=== PATIENT | female | born 1935 | race Caucasian/White ===

== ENCOUNTER 2020-05-16 10:24 | Inpatient (IN) | payer MEDICARE, SELFPAY ==
[2020-05-16] VITALS (27 sets, daily range): BP systolic 117–140; BP diastolic 45–58; PULSE 58–76; RESP 11–20; TEMP 36.1–36.8; O2SAT 72–100; BMI 29.9
--- NOTE | ~2020-05-16 | CT_ITS ---
EXAMINATION: CT brain wo con DATE: 05/20/2020 10:28 INDICATION: Confusion. TECHNIQUE: Computed tomography (CT) of the head was performed without intravenous contrast. The mA wa s adjusted according to patient size. Iterative reconstruction technique was employed. The dose-lengt h product was 605.33 mGy-cm. COMPARISON: Head CT 01/10/2009 FINDINGS: There are scattered areas of low attenuation in the cerebral white matter. There is an old infarct in left frontal lobe. There is no intracranial hemorrhage, acute infarction, or abnormal intr acranial mass lesion. The ventricles are normal in size. The paranasal sinuses are clear. There are c hanges of right mastoidectomy. There are likely changes of ocular lens replacement surgeries. IMPRESSION: 1. 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 2. Moderate nonspecific cerebral white matter disease, which likely represents chronic small vessel i schemic disease. Reviewed, dictated and finalized at location A. L SPLITTER IMPRESSION: 1. 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 2. Moderate nonspecific cerebral white matter disease, which likely represents chronic small vessel ischemic disease.
--- NOTE | ~2020-05-16 | US_ITS ---
EXAMINATION: US venous doppler [facility] DATE: 05/16/2020 13:01 INDICATION: Shortness of breath. Elevated d-dimer. TECHNIQUE: Grayscale ultrasound images without and with compression and Doppler ultrasound images of the bilateral lower extremity veins were obtained. COMPARISON: None. FINDINGS: Noncompressible deep venous thrombosis in the right soleus vein and paired peroneal veins. The visual ized portions of right common femoral vein, profunda (deep) femoral vein, femoral vein, popliteal vei n, posterior tibial veins, gastrocnemius vein and greater saphenous vein outflow are patent. Noncompressible deep venous thrombosis in the left gastrocnemius vein and paired peroneal veins. The visualized portions of left common femoral vein, profunda femoral vein, femoral vein, popliteal vein, posterior tibial veins and greater saphenous vein outflow are patent. IMPRESSION: 1. [id number] deep venous thrombosis at both the left and right lower limbs. Reviewed, dictated and finalized at location A. URE FABRICATOR REPAIRER IMPRESSION: 1. Bwgij-[id number]-[id number] deep venous thrombosis at both the left and right lower limb s.
--- NOTE | ~2020-05-16 | CT_ITS ---
EXAMINATION: CTA chest PE protocol DATE: 05/16/2020 13:17 INDICATION: Shortness of breath. TECHNIQUE: Computed tomography angiography (CTA) of the chest was performed with 100 mL Omnipaque-350 intravenous contrast timed to evaluate the pulmonary arteries. Coronal maximum intensity projection 3D-reconstructions were created by the technologist. Automated exposure control and iterative reconst ruction technique were employed. The dose-length product was 315.65 mGy-cm. COMPARISON: Chest CT 06/13/2018 FINDINGS: There is smooth septal thickening in the lungs, consistent with pulmonary edema. There is m ild atelectasis in the lower lobes. There is peripheral scarring at left lung, worst at the left lung apex. There are calcified pleural plaques in left hemithorax. There are trace pleural effusions. Car diomegaly is noted. There are coronary artery calcifications. The central pulmonary arteries are enla rged, consistent with pulmonary arterial hypertension. There is no pulmonary embolus. There is a smal l sliding hiatal hernia. There is a left fifth rib defect from prior thoracotomy. There is mild thora cic spondylosis. There is a hemangioma in T6 vertebral body. IMPRESSION: 1. No pulmonary embolus. Sensitivity is mildly decreased by motion artifact 2. Mild pulmonary edema with trace pleural effusions. 3. Scarring in left lung, worst at the lung apex. 4. Cardiomegaly. Reviewed, dictated and finalized at location B. MIGRATION CONSULTANT
--- NOTE | ~2020-05-16 | XR_ITS ---
EXAMINATION: XR chest 1V portable DATE: 05/16/2020 11:28 INDICATION: Shortness of breath. TECHNIQUE: A single frontal view of the chest was obtained. COMPARISON: Chest 2 views 11/23/2018, chest CT 06/13/2018 FINDINGS: There is chronic volume loss of left hemithorax with chronic scarring at left lung apex. Th ere are calcified pleural plaques on the left. There are scattered areas of linear scarring in left l jann. No pleural effusion or pneumothorax. Cardiomegaly is noted. There is a left-sided rib defect fro m prior thoracotomy. IMPRESSION: 1. Scarring in left lung. 2. Cardiomegaly. Reviewed, dictated and finalized at location B. OLE LEVELER
--- NOTE | 2020-05-16 10:35 | ECG_ITS ---
Measurements Intervals [place] Rate: 60 P: 96 AK: 210 QRS: 85 QRSD: 93 T: 70 QT: 429 QTc: 430 Interpretive Statements SINUS RHYTHM WITH FIRST DEGREE AV BLOCK ATRIAL PREMATURE COMPLEX DELAYED PRECORDIAL R/S TRANSITION BASELINE ARTIFACT- I, III, AVR, AVL, AVF ABNORMAL ECG Electronically Signed On 05-16-2020 11:18:16 STREETCAR STARTER by Yovanny Elliott D.O.
[2020-05-16 10:50] LABS: Basophils Absolute Auto 0.1 K/mm3 (0.0-0.1); Basophils Percent Auto 0.8 % (0.2-1.2); Eosinophils Absolute Auto 0.4 K/mm3 (0-0.3); Eosinophils Percent Auto 4.9 % (0-4.4); Hematocrit 32.8 % (37.0-47.0); Hemoglobin 10.5 g/dL (12.0-15.0); Immature Granulocyte Absolute 0.02 K/mm3 (0.00-0.031); Immature Granulocyte Percent A 0.3 % (0-0.5); Lymphocytes Absolute Auto 1.54 K/mm3 (0.9-3.2); Lymphocytes Percent Auto 21.5 % (18.3-44.2); Mean Corpuscular Hemoglobin 30.1 pg (26-34); Mean Platelet Volume 10.2 fl (7.4-10.4); Monocytes Absolute Auto 0.8 K/mm3 (0.1-0.6); Monocytes Percent Auto 11.3 % (2.6-8.5); Neutrophils Absolute Auto 4.4 K/mm3 (1.3-6.7); Neutrophils Percent Auto 61.2 % (45.5-73.1); Platelet Count Result 186 k/mm3 (150-375); Red Blood Count 3.49 M/mm3 (4.2-5.4); Red Cell Distribution Width 12.4 % (11.5-14.5); White Blood Count 7.2 K/mm3 (4.5-10.0)
[2020-05-16 11:04] LABS: Anion Gap 5 mmol/L (8-16); Blood Urea Nitrogen 25 mg/dL (7-17); Calcium 8.8 mg/dL (8.4-10.2); Carbon Dioxide 32 mmol/L (22-30); Chloride 101 mmol/L (98-107); Estimated CRCL calculation 29 ml/min; Estimated Glomerular Filt Rate 39; Glucose 121 mg/dL (65-105); Potassium 3.9 mmol/L (3.4-5.0); Sodium 138 mmol/L (137-145)
[2020-05-16 11:12] LABS: NT Pro B Type Natriuretic Pept 1230 PG/ML (5-100)
--- NOTE | 2020-05-16 11:47 | ED.SOB ---
HPI - SOB/Dyspnea General Chief Complaint: Shortness of Breath/Dyspnea <Carolina Linda PA-C - Last Filed: 05/16/20 14:17> Stated Complaint: short of breath x2 days <JAYJAY Beasley Last Filed: 05/16/20 14:17> Time Seen by Provider: 05/16/20 11:22 <Carolina Linda PA-C - Last Filed: 05/16/20 14:17> Source: patient <JAYJAY Beasley Last Filed: 05/16/20 14:17> Mode of arrival: ambulatory <JAYJAY Beasley Last Filed: 05/16/20 14:17> Limitations: no limitations <JAYJAY Beasley Last Filed: 05/16/20 14:17> History of Present Illness HPI Narrative: This is a 84 year old female that presents to the ER for shortness of breath that started this morning. Reports it has improved some since onset. Started while at rest. Also reports lower extremity edema. Denies fever, cough or chest pain. <JAYJAY Beasley Last Filed: 05/16/20 14:17> Related Data Home Medications: Home Medications Medication Instructions Recorded Confirmed donepezil mg 05/16/20 isosorbide mononitrate mg PO 05/16/20 memantine mg BID 05/16/20 valsartan 320 mg PO BID 05/16/20 <JAYJAY Beasley Last Filed: 05/16/20 14:17> Allergies/Adverse Reactions: Allergies Allergy/AdvReac Type Severity Reaction Status Date / Time No Known Allergies Allergy Verified 05/16/20 11:19 <JAYJAY Beasley Last Filed: 05/16/20 14:17> Review of Systems Review of Systems: Narrative: CONSTITUTIONAL: Denies fever ENT: Denies congestion CARDIOVASCULAR: Reports edema. Denies chest pain RESPIRATORY: Reports dyspnea. Denies cough <JAYJAY Beasley Last Filed: 05/16/20 14:17> All systems reviewed & are unremarkable except as noted in HPI and below <Carolina Linda PA-C - Last Filed: 05/16/20 14:17> [facility] Past Medical History Medical History: Medical History (Updated 05/16/20 @ 14:13 by Carolina Linda PA-C) History of coronary artery disease History of dementia History of hypertension History of hypothyroidism <Carolina Linda PA-C - Last Filed: 05/16/20 14:17> Social History Social History: Social History Smoking status: Never smoker Alcohol intake: never Gender identity (if verbalized by the patient): Female <Carolina Linda PA-C - Last Filed: 05/16/20 14:17> Exam Narrative: Exam Narrative: GENERAL: Elderly, well-nourished, and in no acute distress. HEAD: Normocephalic, atraumatic. EYES: EOMI. ENT: Nares clear, no rhinorrhea or epistaxis. Mucous membranes moist. Oropharynx without tonsillar hypertrophy exudate or other lesions. Bilateral TMs pearly novak non-bulging NECK: Supple. No adenopathy or masses. No carotid bruits or JVD CHEST: Clear to auscultation. No respiratory distress. No wheezes rales or rhonchi HEART: Regular rate and rhythm. No murmur heard. Normal peripheral pulses. EXTREMITIES: Normal range of motion. 1+ pitting edema to the bilateral lower extremities SKIN: Warm, dry, no rash. NEURO: No focal deficits. Alert and oriented x3. PSYCH: Normal mood and affect <Carolina Linda PA-C - Last Filed: 05/16/20 14:17> Course FINANCIAL MANAGEMENT/PA Physician Supervision For this encounter, I have reviewed the PA documentation, treatment plan and medical decision making: And I have had [id number] time with the patient. On exam heart regular rate and rhythm crackles bilateral lung bases. Discussed with patient need for admission all questions answered patient in agreement at this time <Nikunj Melgar DO - Last Filed: 05/16/20 14:27> Consultations Consultation #1: Spoke with hospitalist about patient and work-up who accepts admission <Carolina Linda PA-C - Last Filed: 05/16/20 14:17> Date: 05/16/20 <Carolina Linda PA-C - Last Filed: 05/16/20 14:17> Time: 14:14 <Carolina Linda PA-C - Last Filed: 05/16/20 14:17> Vital Signs Vital signs: Vital Signs Temperature 97.4 F L 05/16/20 10:36
[2020-05-16 12:02] LABS: Prothrombin Time 13.3 Seconds (11.1-14.7)
[2020-05-16 12:03] LABS: Partial Thromboplastin Time 28.8 SECONDS (22.3-36.8)
[2020-05-16 12:06] LABS: D Dimer 2.12 ug/mL (<0.48)
[2020-05-16 12:22] LABS: Troponin I < 0.012 ng/mL (0.000-0.034)
--- NOTE | 2020-05-16 12:34 | PC.NURSE ---
Pt at ultrasound at this time
--- NOTE | 2020-05-16 13:08 | PC.NURSE ---
Pt to CT scan.
[2020-05-16] MEDS: ENOXAPARIN 80 MG/0.8 ML SYRINGE 75 MG SUB-Q (14:09)
[2020-05-16] MEDS: FUROSEMIDE INJ 40 MG/4 ML VIAL IV PUSH ×2 (14:09→22:19)
--- NOTE | 2020-05-16 14:22 | PC.NURSE ---
pt oxygen saturation 72% on room after walking back from the bathroom. Dr Melgar notified.
[2020-05-16 15:12] LABS: Troponin I < 0.012 ng/mL (0.000-0.034)
--- NOTE | 2020-05-16 15:47 | PC.NURSE ---
Updated pt's son JEAN Snider pt admitted to room 340
--- NOTE | 2020-05-16 16:07 | ADMGEN ---
This patient, Judy Pastor, was admitted to Medical Room 340-01. Patient/family oriented to hospital policies and general routines including ID bracelet, bed and alarms, visiting hours, pain management, procedures, bathroom and other care routines, personal items, smoking policy, room service/diet, and visiting hours. Information on how to activate the Rapid Response Team has been discussed. Patient/Family are encouraged to report perceived risks to care and to ask questions if they do not understand what they are told or what they should do.
--- NOTE | 2020-05-16 22:00 | PM.IMHP ---
H&P: HPI History of Present Illness Date/Time: 05/16/20 22:00 Chief complaint: Shortness of breath. Narrative: Judy Pastor is an 84-year-old female with hypertension, hypothyroidism, congestive heart failure, and dementia who presented to the emergency department earlier today from home for evaluation of shortness of breath. She has a fair historian due to her forgetfulness but from what I can gather she has been feeling short of breath for the last couple of days, worse with exertion and lying supine. She also reports lower extremity edema but it sounds as though this has been an intermittent issue for many years. She reports rhinorrhea as well and apparently reported sinus congestion and diarrhea to the triage nurse however she adamantly denies that to me. A D-dimer was drawn on arrival to the emergency department and was elevated. Subsequent chest CTA was negative for pulmonary embolism but did demonstrate mild pulmonary edema with trace effusions as well as cardiomegaly. Due to mild hypoxia, she is being admitted for further treatment and evaluation of presumed congestive heart failure. She has not noticed any significant change in weight. She denies chest pain, palpitations, and feelings of racing heart. No nausea, vomiting, or sweats. She has not had fever or chills. She denies cough. No sick contacts or known exposure to those positive for COVID-19. Review of Systems Review of Systems: Narrative: Twelve systems were reviewed with pertinent positives and negatives as per HPI. She believes her weight has remained stable. No recent travel. No dysuria. Except as documented, all other systems were reviewed and are negative. [facility], [facility] Past Medical History Medical History (Updated 05/17/20 @ 00:31 by Meg Payne PA-C) Carotid artery disease Cerebrovascular accident Congestive heart failure Dementia Depression with anxiety History of tuberculosis Hypertension Hypothyroidism Osteoarthritis Surgical History Surgical History (Updated 05/17/20 @ 00:28 by Meg Payne PA-C) History of bilateral cataract extraction History of carotid endarterectomy History of right knee joint replacement History of thoracotomy At age 16 with what sounds like wedge resection related to tuberculosis. Family History Family History Father Tuberculosis Social History Social History (Updated 05/17/20 @ 00:29 by Meg Payne PA-C) Social History: The patient lives in [place] with her . She is a lifelong nonsmoker. No alcohol or illicit substance the use. Her son Tylor is power of environmental attorney. She is a full code. Spiritual care concerns: No Meds Home Medications and Allergies Home Medications Medication Instructions Recorded Confirmed Type levothyroxine 150 mcg tablet 150 mcg PO DAILY #30 tablet 12/13/19 05/16/20 Rx carvedilol 25 mg tablet 12.5 mg PO Q12H #90 tablet 05/14/20 05/16/20 Rx amlodipine 10 mg PO DAILY 05/16/20 05/16/20 History donepezil 5 mg PO QPM 05/16/20 05/16/20 History isosorbide mononitrate 30 mg PO DAILY 05/16/20 05/16/20 History lorazepam 0.5 mg PO HS 05/16/20 05/16/20 History memantine 10 mg PO BID 05/16/20 05/16/20 History sertraline 50 mg PO HS 05/16/20 05/16/20 History valsartan 320 mg PO DAILY 05/16/20 05/16/20 History Allergies Allergy/AdvReac Type Severity Reaction Status Date / Time No Known Allergies Allergy Verified 05/16/20 18:21 Vital Signs Vital Signs - 24 hr 05/16/20 10:36 05/16/20 11:16 05/16/20 11:35 Temperature 97.4 F L Pulse Rate 64 63 60 Respiratory Rate 17 17 Blood Pressure 117/45 L Pulse Oximetry 94 85 L 91 05/16/20 11:45 05/16/20 11:46 05/16/20 11:48 Temperature Pulse Rate 60 58 L Respiratory Rate 17 15 Blood Pressure 126/56 L Pulse Oximetry 85 L 89 L 97 05/16/20 13:21 05/16/20 13:22 05/16/20 13:30 Temperature Pulse Rate 71 68 65 Respir
[2020-05-17] VITALS (12 sets, daily range): BP systolic 97–157; BP diastolic 50–59; PULSE 65–160; RESP 18–24; TEMP 36–36.4; O2SAT 86–97
[2020-05-17] MEDS: carvediloL 12.5 MG TABLET PO ×3 (01:48→20:40)
[2020-05-17] MEDS: LEVOTHYROXINE SODIUM 150 MCG TABLET PO (06:29)
[2020-05-17] MEDS: ENOXAPARIN 80 MG/0.8 ML SYRINGE SUB-Q ×2 (06:30→17:10)
[2020-05-17 06:54] LABS: Hematocrit 34.3 % (37.0-47.0); Hemoglobin 11.2 g/dL (12.0-15.0); Mean Corpuscular HGB Conc 32.7 g/dl (32-36); Mean Corpuscular Hemoglobin 29.3 pg (26-34); Mean Corpuscular Volume 89.8 fl (80-100); Mean Platelet Volume 10.6 fl (7.4-10.4); Platelet Count Result 209 k/mm3 (150-375); Red Blood Count 3.82 M/mm3 (4.2-5.4); Red Cell Distribution Width 12.2 % (11.5-14.5); White Blood Count 6.5 K/mm3 (4.5-10.0)
[2020-05-17 07:08] LABS: Alanine Aminotransferase 19 U/L (4-35); Albumin Level 3.6 g/dL (3.5-5.1); Alkaline Phosphatase 87 U/L (38-126); Anion Gap 4 mmol/L (8-16); Aspartate Amino Transferase 32 U/L (14-36); Bilirubin,Total 0.5 mg/dL (0.2-1.3); Blood Urea Nitrogen 20 mg/dL (7-17); Calcium 8.9 mg/dL (8.4-10.2); Carbon Dioxide 37 mmol/L (22-30); Chloride 97 mmol/L (98-107); Estimated CRCL calculation 38 ml/min; Estimated Glomerular Filt Rate 53; Glucose 95 mg/dL (65-105); Magnesium 1.8 mg/dL (1.6-2.3); Potassium 3.2 mmol/L (3.4-5.0); Sodium 138 mmol/L (137-145)
[2020-05-17 08:45] LABS: Free T4 Free Thyroxine Reflex 1.56 ng/dL (0.78-2.19)
[2020-05-17] MEDS: ISOSORBIDE MONONITRATE 30 MG TAB.ER.24H PO (09:15)
[2020-05-17] MEDS: amLODIPine BESYLATE 5 MG TABLET 10 MG PO (09:15)
[2020-05-17] MEDS: MEMANTINE 10 MG TABLET PO ×2 (09:15→17:10)
[2020-05-17] MEDS: VALSARTAN 160 MG TABLET 320 MG PO (09:15)
[2020-05-17 09:33] LABS: Total Triiodothyronine (T3) 1.25 NG/ML (0.97-1.69)
--- NOTE | 2020-05-17 13:56 | PM.CNCAR ---
Assessment and Plan Additional Plan this is an 84-year-old lady who presents to the hospital reporting symptoms of dyspnea and was admitted with the idea that she has congestive heart failure. As I mentioned above I have been following this lady in the office for about 15 years and I do not have any personal knowledge of her being in a state of decompensated heart failure in the past. For some reason this is stated in her chart as a previous diagnosis. She does have as I stated above a history of documented coronary vasospastic infarction which was a small event in the posterior basal segment 14 years ago. Since then her office follow-up has been quite stable. She has very strange mental status today which I am not used to seeing when she comes to the office as stated above reporting to already have been . An echocardiogram was done to reassess her cardiac status which I suppose is reasonable. I do not see any physical exam evidence that this lady is in a state of decompensated heart failure in my opinion. Gustavo Funes MD [facility] History of Present Illness History of Present Illness Consult date/time: 05/17/20 13:56 Reason For Visit: Shortness of breath. Narrative: This is an 84-year-old woman who I am asked to see at the request of the hospitalist the stated reason for the consult is because of congestive heart failure. The patient apparently came to the hospital yesterday reporting dyspnea and a history of congestive heart failure was stated in the chart and for this reason I was asked to see her in consultation. This is a lady that I had no and follow in the office for about 15 years. She does not have any previous history of congestive heart failure as far as I know does not have a cardiac reason to have CHF. I have been following her case since 2005 when she admitted with some chest pain and had a rise in her cardiac biomarkers. She was brought to the cardiac catheterization lab for angiography and found to have no angiographic coronary abnormalities but she did have a posterior basal wall motion abnormality with a normal overall ejection fraction leading to the impression that she had a spasm induced infarction. She was placed on some medical therapy for this including amlodipine and Isosorbide,since then has not had any cardiovascular problems and I have been seeing her in the office for a long time. 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 I do not have any immediate idea of where the diagnosis of heart failure history comes from in her chart. In any event in this setting of seeing her in consultation. My encounter with her today was extremely unusual. She did remember who I was when I came into the room but she indicated that she had already and was buried. She states that she was experiencing some shortness of breath and states that she still is short of breath and as she states that she is waving her arms around in the air. Patient's chest x-ray demonstrates some loss of volume at the left lung apex. I do not personally see any obvious evidence of CHF on her chest x-ray. In any event in this setting I am seeing her in consultation. Review of Systems Review of Systems: Narrative: Given her very strangemental status I would not consider review of systems reliable ROS unobtainable: Yes unobtainable due to mental status PMFSH Past Medical History Medical History (Updated 05/17/20 @ 00:31 by Meg Payne PA-C) Carotid artery disease Cerebrovascular accident Congestive heart failure Dementia Depression with anxiety History of tuberculosis Hypertension Hypothyroidism Osteoarthritis Surgical History Surgical History (Updated 05/17/20 @ 00:28 by Meg Payne PA-C) History of bilateral cataract extraction History of carotid endarterectomy History of right knee joint replacement History of tho
--- NOTE | 2020-05-17 14:04 | PM.IMPN ---
Progress Note: A&P Assessment and Plan (1) Acute respiratory failure with hypoxia: Code(s): J96.01 - Acute respiratory failure with hypoxia Status: Acute (2) DVT of lower extremity, bilateral: Code(s): I82.403 - Acute embolism and thrombosis of unspecified deep veins of lower extremity, bilateral Status: Acute Assessment and Plan: Will continu anti coagulation. (3) Hypertension: Code(s): I10 - Essential (primary) hypertension Status: Acute Assessment and Plan: Stable on meds (4) Hypothyroidism: Code(s): E03.9 - Hypothyroidism, unspecified Status: Acute Assessment and Plan: Stable on meds (5) Dementia: Code(s): F03.90 - Unspecified dementia without behavioral disturbance Status: Acute Assessment and Plan: Stable on meds (6) Congestive heart failure: Code(s): I50.9 - Heart failure, unspecified Status: Acute Assessment and Plan: Continue di uresis (7) Hypokalemia: Code(s): E87.6 - Hypokalemia Status: Acute Assessment and Plan: Replace and monitor. Additional Plan The patient has been admitted to the hospitalist service overnight as she does have on oxygen requirement, presumably secondary to mild congestive heart failure noted on imaging. Venous Dopplers did show bilateral [id number] DVTs however chest CTA was negative for pulmonary embolism. She will be cautiously diuresed with close monitoring of volume status and renal function. Echocardiogram has been ordered for a.m.. Her blood pressures reviewed and they are stable; will need to watch closely while diuresing. will switch to po anti coagulation in am Subjective Date/time seen: 05/17/20 14:04 Interval history: Patient was seen during the morning rounds today. Mild sob, no chest pain, mood stable. Review of Systems Review of Systems: All systems reviewed & are unremarkable except as noted in HPI and below (the history and physical.) Exam Narrative: Exam Narrative: General: Well-developed elderly female appearing a bit younger than her stated age sitting up in bed watching television in no distress. Weight: 79.2 kg. BMI: 30.0. HEENT: PERRL, EOMI. Sclerae anicteric. Oral mucosa moist. Oropharynx clear. Neck: Supple. No significant JVD. Respiratory : Air entry is slightly decreased Cardiovascular: Regular rate and rhythm with S1-S2. Gastrointestinal: Abdomen is soft, nontender, and nondistended with positive bowel sounds. Skin: Warm and dry. No rash or lesions on limited exam. Extremities: No cyanosis or clubbing. Trace bilateral lower extremity edema. Mild tenderness to palpation about both calves. Negative Ravindra sign bilaterally. Radial and pedal pulses intact. Neurological: Alert. Cranial nerves 2-12 are grossly intact. No gross focal deficits to casual conversation. Psychiatric: Pleasant and cooperative. Appropriate mood. Occasionally forgetful. Objective Data Vital Signs Vital Signs: Vital Signs - 24 hr 05/16/20 14:18 05/16/20 14:30 05/16/20 14:31 Temperature Pulse Rate Respiratory Rate Blood Pressure 126/49 L Pulse Oximetry 72 L 100 100 05/16/20 14:45 05/16/20 14:58 05/16/20 15:00 Temperature 36.1 C L Pulse Rate 68 65 Respiratory Rate 16 15 Blood Pressure 126/49 L Pulse Oximetry 99 99 98 05/16/20 15:01 05/16/20 15:42 05/16/20 16:13 Temperature 36.8 C Pulse Rate 64 72 69 Respiratory Rate 13 20 16 Blood Pressure 125/53 L 120/58 L Pulse Oximetry 98 99 05/16/20 16:30 05/16/20 18:32 05/16/20 20:00 Temperature Pulse Rate 76 75 Respiratory Rate Blood Pressure Pulse Oximetry 96 05/16/20 20:44 05/16/20 22:30 05/17/20 00:00 Temperature 36.7 C Pulse Rate 72 70 Respiratory Rate 16 Blood Pressure 140/53 L Pulse Oximetry 95 95 05/17/20 01:48 05/17/20 04:00 05/17/20 04:46 Temperature 36.0 C L Pulse Rate 72 70 65 Respiratory
--- NOTE | 2020-05-17 14:08 | PC.NURSE ---
Patient continues to become more confused and refuses treatment. Patient removed IV from her arm, and pulled off telemetry. Patient is stating that she wants to go home. She keeps refusing treatment saying I'm and resisting care. called and I have spoken with him twice today. He has no memory of our conversations as well.
--- NOTE | 2020-05-17 14:41 | PC.NURSE ---
Call to laundry housekeeping aide to see if we could get a sitter for the patient. No sitter available. supervisor finishing department approved a family member coming in to stay in the room with the patient. Patient is continuing to resist care and throw herself onto the floor. For the patient's safety someone needs to be in the room with her while she is confused.
--- NOTE | 2020-05-17 15:47 | PC.NURSE ---
is in room with patient at this time. Patient seems to be more calm with in the room. Patient still refuses to wear her oxygen despite education given on importance and possible help with confusion if oxygen is worn. Considering moving the patient to a room near the nurses station for her safety as the isn't able to stay long with her.
[2020-05-17] MEDS: DONEPEZIL HCL 5 MG TABLET PO (17:10)
--- NOTE | 2020-05-17 17:17 | PC.NURSE ---
Patient continues to be resistive to care and refuses to listen despite education given on safety and importance of medications. Patient is becoming more confused and less aware of her surroundings and continues to refuse any care given by me or the PROGRAMMER DEVELOPER.
[2020-05-17] MEDS: LORazepam (*CRX) 0.5 MG TABLET PO (20:40)
[2020-05-17] MEDS: SERTRALINE HCL 50 MG TABLET PO (20:40)
[2020-05-18] VITALS (7 sets, daily range): BP systolic 113–147; BP diastolic 50–67; PULSE 64–72; RESP 14–18; TEMP 36.1–37; O2SAT 92–97
[2020-05-18] MEDS: LEVOTHYROXINE SODIUM 150 MCG TABLET PO (06:00)
[2020-05-18] MEDS: ENOXAPARIN 80 MG/0.8 ML SYRINGE SUB-Q (06:00)
[2020-05-18 07:07] LABS: Anion Gap 7 mmol/L (8-16); Blood Urea Nitrogen 16 mg/dL (7-17); Carbon Dioxide 36 mmol/L (22-30); Chloride 97 mmol/L (98-107); Estimated CRCL calculation 42 ml/min; Estimated Glomerular Filt Rate 60; Glucose 93 mg/dL (65-105); Potassium 3.7 mmol/L (3.4-5.0); Sodium 140 mmol/L (137-145)
[2020-05-18] MEDS: carvediloL 12.5 MG TABLET PO ×2 (08:17→20:35)
[2020-05-18] MEDS: amLODIPine BESYLATE 5 MG TABLET 10 MG PO (08:17)
[2020-05-18] MEDS: VALSARTAN 160 MG TABLET 320 MG PO (08:17)
[2020-05-18] MEDS: MEMANTINE 10 MG TABLET PO ×2 (08:18→17:02)
[2020-05-18] MEDS: ISOSORBIDE MONONITRATE 30 MG TAB.ER.24H PO (08:18)
[2020-05-18] MEDS: POTASSIUM CHLORIDE 20 MEQ TABLET.ER 40 MEQ PO (08:18)
--- NOTE | 2020-05-18 11:06 | PM.IMPN ---
Progress Note: A&P Assessment and Plan (1) Acute respiratory failure with hypoxia: Code(s): J96.01 - Acute respiratory failure with hypoxia Status: Acute (2) DVT of lower extremity, bilateral: Code(s): I82.403 - Acute embolism and thrombosis of unspecified deep veins of lower extremity, bilateral Status: Acute Assessment and Plan: Will continu anti coagulation. (3) Hypertension: Code(s): I10 - Essential (primary) hypertension Status: Acute Assessment and Plan: Stable on meds (4) Hypothyroidism: Code(s): E03.9 - Hypothyroidism, unspecified Status: Acute Assessment and Plan: Stable on meds (5) Dementia: Code(s): F03.90 - Unspecified dementia without behavioral disturbance Status: Acute Assessment and Plan: Stable on meds (6) Congestive heart failure: Code(s): I50.9 - Heart failure, unspecified Status: Acute Assessment and Plan: Continue di uresis (7) Hypokalemia: Code(s): E87.6 - Hypokalemia Status: Acute Assessment and Plan: Replace and monitor. Additional Plan The patient has been admitted to the hospitalist service overnight as she does have on oxygen requirement, presumably secondary to mild congestive heart failure noted on imaging. Venous Dopplers did show bilateral [id number] DVTs however chest CTA was negative for pulmonary embolism. She will be cautiously diuresed with close monitoring of volume status and renal function. Echocardiogram has been ordered for a.m.. Her blood pressures reviewed and they are stable; will need to watch closely while diuresing. will switch to po anti coagulation. Dc in am Subjective Date/time seen: 05/18/20 11:06 Interval history: Patient was seen during the morning rounds today. Decreased sob, no chest pain, mood stable. Review of Systems Review of Systems: All systems reviewed & are unremarkable except as noted in HPI and below (the history and physical.) Exam Narrative: Exam Narrative: General: Well-developed elderly female appearing a bit younger than her stated age sitting up in bed watching television in no distress. Weight: 79.2 kg. BMI: 30.0. HEENT: PERRL, EOMI. Sclerae anicteric. Oral mucosa moist. Oropharynx clear. Neck: Supple. No significant JVD. Respiratory : Air entry is slightly decreased Cardiovascular: Regular rate and rhythm with S1-S2. Gastrointestinal: Abdomen is soft, nontender, and nondistended with positive bowel sounds. Skin: Warm and dry. No rash or lesions on limited exam. Extremities: No cyanosis or clubbing. Trace bilateral lower extremity edema. Mild tenderness to palpation about both calves. Negative Ravindra sign bilaterally. Radial and pedal pulses intact. Neurological: Alert. Cranial nerves 2-12 are grossly intact. No gross focal deficits to casual conversation. Psychiatric: Pleasant and cooperative. Appropriate mood. Occasionally forgetful. Objective Data Vital Signs Vital Signs: Vital Signs - 24 hr 05/17/20 12:00 05/17/20 14:00 05/17/20 20:40 Temperature 36.4 C L Pulse Rate 70 160 H 66 Respiratory Rate 24 H Blood Pressure 97/59 L Pulse Oximetry 86 L 05/17/20 20:45 05/17/20 22:00 05/18/20 06:00 Temperature 36.2 C L 36.1 C L Pulse Rate 77 69 Respiratory Rate 18 18 Blood Pressure 157/50 H 147/67 H Pulse Oximetry 97 97 97 05/18/20 08:17 05/18/20 08:20 Temperature Pulse Rate 72 Respiratory Rate Blood Pressure Pulse Oximetry 92 Intake/Output Intake/Output: Intake & Output 05/15/20 05/16/20 05/17/20 05/18/20 23:59 23:59 23:59 23:59 Intake Total 1440 880 Output Total 375 300 Balance -375 1440 580 Meds/Results Medications: Active Medications Generic Name Dose Route Start Last Admin Trade Name Freq PRN Reason Stop Dose Admin Amlodipine Besylate 10 mg 05/17/20 09:00 05/18/20 08:17 Amlodipine Besylate 5 Mg Tablet PO 10 m
[2020-05-18] MEDS: DONEPEZIL HCL 5 MG TABLET PO (17:02)
[2020-05-18] MEDS: LORazepam (*CRX) 0.5 MG TABLET PO (20:36)
[2020-05-18] MEDS: SERTRALINE HCL 50 MG TABLET PO (20:36)
[2020-05-18] MEDS: APIXABAN 5 MG TABLET 10 MG PO (20:36)
[2020-05-19] MEDS: LEVOTHYROXINE SODIUM 150 MCG TABLET PO (06:28)
--- NOTE | 2020-05-19 09:48 | PM.IMPN ---
Progress Note: A&P Assessment and Plan (1) Acute respiratory failure with hypoxia: Code(s): J96.01 - Acute respiratory failure with hypoxia Status: Resolved Assessment and Plan: Pt breathing is better, mood is variable, pt can have haldol IM for agitation. Pt to rest today with sitter in the room, hopeful Dc tomorrow with anticoagulation (2) DVT of lower extremity, bilateral: Code(s): I82.403 - Acute embolism and thrombosis of unspecified deep veins of lower extremity, bilateral Status: Acute Assessment and Plan: Will continue anti- coagulation. (3) Hypertension: Code(s): I10 - Essential (primary) hypertension Status: Acute Assessment and Plan: Stable on meds (4) Hypothyroidism: Code(s): E03.9 - Hypothyroidism, unspecified Status: Acute Assessment and Plan: Stable on meds (5) Dementia: Code(s): F03.90 - Unspecified dementia without behavioral disturbance Status: Acute Assessment and Plan: Stable on meds (6) Congestive heart failure: Code(s): I50.9 - Heart failure, unspecified Status: Acute Assessment and Plan: Continue diuresis (7) Hypokalemia: Code(s): E87.6 - Hypokalemia Status: Acute Assessment and Plan: Replace and monitor. Subjective Date/time seen: 05/19/20 09:48 Interval history: 84-year-old female with hypertension, hypothyroidism, congestive heart failure, and dementia who presented to the emergency department earlier today from home for evaluation of shortness of breath. Found to have DVT, Pt has been very agitated yesterday and this morning. Pt to try haldol Im today and hopeful DC felix. Pt to rest today. Review of Systems Review of Systems: ROS unobtainable: Yes unobtainable due to mental status Exam Narrative: Exam Narrative: General: Well-developed elderly female HEENT: PERRL, EOMI. Neck: Supple. Respiratory : Lungs are clear Cardiovascular: Regular rate and rhythm with S1-S2. Gastrointestinal: Abdomen is soft, nontender, and nondistended with positive bowel sounds. Skin: Warm and dry. No rash or lesions on limited exam. Extremities: No cyanosis or clubbing. Neurological: Alert. Cranial nerves 2-12 are grossly intact. No gross focal deficits to casual conversation. Psychiatric: Pleasant and cooperative. Bit irritable today. Objective Data Vital Signs Vital Signs: Vital Signs - 24 hr 05/18/20 14:00 05/18/20 20:11 05/18/20 20:30 Temperature 36.8 C 37.0 C Pulse Rate 64 66 Respiratory Rate 16 14 Blood Pressure 113/50 L 127/56 L Pulse Oximetry 97 97 96 05/18/20 20:35 Temperature Pulse Rate 68 Respiratory Rate Blood Pressure Pulse Oximetry Intake/Output Intake/Output: Intake & Output 05/16/20 05/17/20 05/18/20 05/19/20 23:59 23:59 23:59 23:59 Intake Total 1440 1910 Output Total 375 300 400 Balance -375 1440 1610 -400 Meds/Results Medications: Active Medications Generic Name Dose Route Start Last Admin Trade Name Freq PRN Reason Stop Dose Admin Amlodipine Besylate 10 mg 05/17/20 09:00 05/18/20 08:17 Amlodipine Besylate 5 Mg Tablet PO 10 mg DAILY SREE Administration Apixaban 10 mg 05/18/20 21:00 05/18/20 20:36 Apixaban 5 Mg Tablet PO 10 mg Q12HR SREE Administration Carvedilol 12.5 mg 05/17/20 00:40 05/18/20 20:35 Carvedilol 12.5 Mg Tablet PO 12.5 mg Q12HR SREE Administration Donepezil HCl 5 mg 05/17/20 18:00 05/18/20 17:02 Donepezil Hcl 5 Mg Tablet PO 5 mg QPM SREE Administration Haloperidol Lactate 5 mg 05/19/20 10:00 Haloperidol Lactate 5 Mg/Ml Vial IM 05/19/20 10:01 ONCE ONE Isosorbide Mononitrate 30 mg 05/17/20 09:00 05/18/20 08:18 Isosorbide Mononitrate 30 Mg Tab.Er.24h PO 30 mg DAILY SREE Administration Levothyroxine Sodium 150 mcg 05/17/20 06:30 05/19/20 06:28 Levothyroxine Sodium 150 Mcg Tablet PO 150 mcg RICARDO
[2020-05-19 10:15] VITALS: BP 143/77; PULSE 63; RESP 16; TEMP 35.7; O2SAT 95
--- NOTE | 2020-05-19 14:13 | PM.PNCARD ---
Progress Note: A&P Additional Plan 84-year-old lady with: Remote history of myocardial infarction that was documented to be due to vasospasm as she had a posterior event with no coronary lesions being identified. She has not had any cardiac problems since then and I do not detect any obvious cardiovascular issues currently. I will go ahead and sign off her case at this time continue to follow her in the office as scheduled. Gustavo Funes MD [facility] Subjective Date/time seen: 05/19/20 14:13 Interval history: follow-up visit in this 84-year-old lady with a previous history of coronary vasospasm many years ago. Admitted to the hospital complaining of shortness of breath. Clinical impression was concern regarding congestive heart failure and I did not see any evidence of that on my consultation examination. Patient today is more calm and does for the most part answer questions appropriately all although in the middle of the visit she closed her eyes and refused to speak. No cardiovascular complaints Exam Const: General: comfortable and no acute distress HENMT: Mouth: Yes moist mucous membranes Eyes: Sclera: sclerae normal Pupils: Equal, round and reactive pupils present Neck: Neck: supple and no JVD Other: carotid upstrokes normal no bruits audible Resp: Effort & Inspection: normal respiratory effort Auscultation: clear to auscultation bilaterally Cardio: Rate: regular rate Rhythm: regular rhythm Other: soft grade 2/6 systolic crescendo decrescendo murmur at the left sternal border GI: GI Palp: Yes Soft to palpation Auscultation: normal bowel sounds Skin: General skin exam: normal color Neuro: Other: very strange a fact as detailed above. Patient at times is conversant and then will refused to respond to questions or to speak Extrem: General: normal to inspection Objective Data Vital Signs Vital Signs: Vital Signs - 24 hr 05/18/20 20:11 05/18/20 20:30 05/18/20 20:35 Temperature 37.0 C Pulse Rate 66 68 Respiratory Rate 14 Blood Pressure 127/56 L Pulse Oximetry 97 96 05/19/20 10:15 Temperature 35.7 C L Pulse Rate 63 Respiratory Rate 16 Blood Pressure 143/77 H Pulse Oximetry 95 Intake/Output Intake/Output: Intake & Output 12/11/20 12/12/20 12/13/20 12/14/20 23:59 23:59 23:59 23:59 Intake Total 1440 1910 Output Total 375 300 400 Balance -375 1440 1610 -400 Meds/Results Medications: Active Medications Generic Name Dose Route Start Last Admin Trade Name Ramos PRN Reason Stop Dose Admin Amlodipine Besylate 10 mg 05/17/20 09:00 05/18/20 08:17 Amlodipine Besylate 5 Mg Tablet PO 10 mg DAILY SREE Administration Apixaban 10 mg 05/18/20 21:00 05/18/20 20:36 Apixaban 5 Mg Tablet PO 10 mg Q12HR SREE Administration Carvedilol 12.5 mg 05/17/20 00:40 05/18/20 20:35 Carvedilol 12.5 Mg Tablet PO 12.5 mg Q12HR SREE Administration Donepezil HCl 5 mg 05/17/20 18:00 05/18/20 17:02 Donepezil Hcl 5 Mg Tablet PO 5 mg QPM SREE Administration Isosorbide Mononitrate 30 mg 05/17/20 09:00 05/18/20 08:18 Isosorbide Mononitrate 30 Mg Tab.Er.24h PO 30 mg DAILY SREE Administration Levothyroxine Sodium 150 mcg 05/17/20 06:30 05/19/20 06:28 Levothyroxine Sodium 150 Mcg Tablet PO 150 mcg DAILY@0630 SREE Administration Lorazepam 0.5 mg 05/17/20 21:00 05/18/20 20:36 Lorazepam (*Crx) 0.5 Mg Tablet PO 0.5 mg HS SREE Administration Memantine 10 mg 05/17/20 09:00 05/18/20 17:02 Memantine 10 Mg Tablet PO 10 mg BID SREE Administration Potassium Chloride 40 meq 05/18/20 08:00 05/18/20 08:18 Potassium Chloride 20 Meq Tablet.Er PO 40 meq DAILY@0800 SREE Administration Sertraline HCl 50 mg 05/17/20 21:00 05/18/20 20:36 Sertraline Hcl 50 Mg Tablet PO 50 mg HS SREE Administration Valsartan 320 mg 05/17/20 09:00 05/18/20 08:17 Valsartan 160 Mg Tablet PO 06/16/20 09:01 320 mg DAILY SC
[2020-05-19] MEDS: HALOPERIDOL LACTATE 5 MG/ML VIAL IM (15:40)
--- NOTE | 2020-05-19 15:55 | PC.NURSE ---
Pt being physically and verbally aggressive. Medication given with the assistance of staff. Pt spitting on staff members, so security was called. Charge nurse and service unit operator at bedside for assistance. I have spoken with the Armando and POA son Justin regarding patient and current plans for care.
--- NOTE | 2020-05-19 18:19 | PC.NURSE ---
Pt refusing all medications today. MD aware. Family aware.
[2020-05-19 20:25] VITALS: BP 136/68; PULSE 72; RESP 16; TEMP 36.7; O2SAT 97
[2020-05-19] MEDS: APIXABAN 5 MG TABLET 10 MG PO (20:26)
[2020-05-19 20:27] VITALS: PULSE 72
[2020-05-19] MEDS: carvediloL 12.5 MG TABLET PO (20:27)
[2020-05-19] MEDS: SERTRALINE HCL 50 MG TABLET PO (20:27)
[2020-05-19] MEDS: LORazepam (*CRX) 0.5 MG TABLET PO (20:27)
[2020-05-20] MEDS: LEVOTHYROXINE SODIUM 150 MCG TABLET PO (06:08)
[2020-05-20 08:00] VITALS: O2SAT 98
[2020-05-20] MEDS: VALSARTAN 160 MG TABLET 320 MG PO (08:31)
[2020-05-20] MEDS: MEMANTINE 10 MG TABLET PO (08:31)
[2020-05-20] MEDS: APIXABAN 5 MG TABLET 10 MG PO (08:31)
[2020-05-20] MEDS: POTASSIUM CHLORIDE 20 MEQ TABLET.ER 40 MEQ PO (08:31)
[2020-05-20] MEDS: ISOSORBIDE MONONITRATE 30 MG TAB.ER.24H PO (08:31)
[2020-05-20 08:32] VITALS: PULSE 82
[2020-05-20] MEDS: amLODIPine BESYLATE 5 MG TABLET 10 MG PO (08:32)
[2020-05-20] MEDS: carvediloL 12.5 MG TABLET PO (08:32)
[2020-05-20 09:01] LABS: Vitamin B12 > 1000.0 pg/mL (239-931)
--- NOTE | 2020-05-20 12:19 | PM.DS ---
DS: Admitting Diagnosis Admitting Diagnosis Admitting Diagnosis: SOB DS: Discharge Diagnosis Discharge Diagnosis (1) Acute respiratory failure with hypoxia: Code(s): J96.01 - Acute respiratory failure with hypoxia Status: Resolved Assessment and Plan: Pt breathing is better, mood is variable, pt did have haldol IM for agitation and oral ativan yesterday. Pt appears alot better today very calm. (2) DVT of lower extremity, bilateral: Code(s): I82.403 - Acute embolism and thrombosis of unspecified deep veins of lower extremity, bilateral Status: Acute Assessment and Plan: Started on eliquis. Will continue anti- coagulation. (3) Hypertension: Code(s): I10 - Essential (primary) hypertension Status: Acute Assessment and Plan: Stable on meds (4) Hypothyroidism: Code(s): E03.9 - Hypothyroidism, unspecified Status: Acute Assessment and Plan: Stable on meds (5) Dementia: Code(s): F03.90 - Unspecified dementia without behavioral disturbance Status: Acute Assessment and Plan: Stable on meds, i have increased her aricept to 10 mg po qdaily, pt is on namenda and aricept. Pt given 20# of ativan for severe anxiety or agitation to use sparingly. Pt to follow with neurology on discharge. Pt had CT head, B12 and TSH ordered prior to discharge, which were normal. 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 2. Moderate nonspecific cerebral white matter disease, which likely represents chronic small vessel ischemic disease. (6) Congestive heart failure: Code(s): I50.9 - Heart failure, unspecified Status: Acute Assessment and Plan: Continue diuresis (7) Hypokalemia: Code(s): E87.6 - Hypokalemia Status: Resolved Assessment and Plan: Replace and monitor. DS: Summary Hospital Course Hospital Course: 84-year-old female with hypertension, hypothyroidism, congestive heart failure, and dementia who presented to the emergency department earlier today from home for evaluation of shortness of breath. Found to have DVT, Pt has been very agitated yesterday was given haldol and ativan did well, stable for discharge today. Time Spent with Patient Time attestation: Total time spent providing and/or coordinating discharge services:40 minutes on day of discharge Exam Narrative: Exam Narrative: General: Well-developed elderly female HEENT: PERRL, EOMI. Neck: Supple. Respiratory : Lungs are clear Cardiovascular: Regular rate and rhythm with S1-S2. Gastrointestinal: Abdomen is soft, nontender, and nondistended with positive bowel sounds. Skin: Warm and dry. No rash or lesions on limited exam. Extremities: No cyanosis or clubbing. Neurological: Alert. Cranial nerves 2-12 are grossly intact. No gross focal deficits to casual conversation. Psychiatric: Pleasant and cooperative.Very calm and pleasant today. DS: Data Data Completed and Pending Labs on day of discharge: Labs from last 24 hours 05/20/20 05/20/20 05/20/20 07:50 07:50 04:53 Vitamin B12 > 1000.0 H TSH 3.230 SARS-CoV-2 RNA (RT-PCR) Pending Discharge Plan Discharge Attending physician on discharge: Reena Bernstein Consulting providers: Gustavo Funes ; Jorge Luis Hays ; Carolina Linda Discharging Clinician: Reena Bernstein Anticipated Discharge Date/Time: 05/20/20 12:13 Patient Disposition: Home, Self-Care Activity: as tolerated Diet: heart healthy Discharge Instructions: FOLLOW UP WITH NEUROLOGY Patient Instructions: Antibiotic Form, Apixaban (By mouth), Heart Failure (DC), Hypokalemia (DC), Deep Vein Thrombosis (DC) Stand Alone Forms: General Discharge Information Follow-up/Referrals: Adam,JAYJAY Rojas [Primary Care Provider] - Jorge Luis Hays MD [Physician] - (in 1 months time ) Discharge Medications: New lorazepam [Ativan] 0.5 mg tablet 0.5 mg PO HS PRN
[2020-05-20 22:42] LABS: SARS-CoV-2 RNA PCR Negative
== END 2020-05-20 13:30 | disposition home or self-care (01) | DRG 291 ==
LOC: ANHED 14:13 → ANH3MED 14:39
PROVIDERS: Internal Medicine; Physician Assistant; Student in an Organized Health Care Education/Training Program; Admitting Provider Internal Medicine; Emergency Provider Emergency Medicine; PCP Physician Assistant; Visit Provider Family Medicine
DX: I13.0 Hypertensive heart and chronic kidney disease with heart failure and stage 1 through stage 4 chronic kidney disease, or unspecified chronic kidney disease (principal); J96.01 Acute respiratory failure with hypoxia; I82.453 Acute embolism and thrombosis of peroneal vein, bilateral; I82.491 Acute embolism and thrombosis of other specified deep vein of right lower extremity; F03.91 Unspecified dementia, unspecified severity, with behavioral disturbance; I82.462 Acute embolism and thrombosis of left calf muscular vein; Z20.828 Contact with and (suspected) exposure to other viral communicable diseases; I50.9 Heart failure, unspecified; N18.30 Chronic kidney disease, stage 3 unspecified; E03.9 Hypothyroidism, unspecified; I25.10 Atherosclerotic heart disease of native coronary artery without angina pectoris; F41.8 Other specified anxiety disorders; E87.6 Hypokalemia; M19.90 Unspecified osteoarthritis, unspecified site; Z96.651 Presence of right artificial knee joint; Z86.11 Personal history of tuberculosis; Z98.42 Cataract extraction status, left eye; Z98.41 Cataract extraction status, right eye; Z86.718 Personal history of other venous thrombosis and embolism; I25.2 Old myocardial infarction; Z86.73 Personal history of transient ischemic attack (TIA), and cerebral infarction without residual deficits
CPT/HCPCS: 36415; 70450; 71045; 71275; 80048; 80053; 82607; 83735; 83880; 84439; 84443; 84480; 84484; 85025; 85027; 85380; 85610; 85730; 87635; 93005; 93306; 93970; 96372; 96374; 96376; 99291; A9270; C8929; C9803; G0378; J1630; J1650; J1940; Q9967; U0003

== ENCOUNTER 2020-05-21 09:04 | Observation (INO) | payer MEDICARE, SELFPAY ==
[2020-05-21] VITALS (10 sets, daily range): BP systolic 158–184; BP diastolic 62–83; PULSE 68–87; RESP 10–18; TEMP 36.1–36.6; O2SAT 89–98; BMI 27.1
--- NOTE | ~2020-05-21 | XR_ITS ---
XR chest 1V DATE: 05/21/2020 10:07 INDICATION: Unresponsive TECHNIQUE: AP chest COMPARISON: 05/16/2020 portable AP chest 05/16/2020 CT pulmonary scan FINDINGS: Status post left thoracotomy. Prominent left apical capping consistent with left upper lung scarring and volume loss. Cardiomegaly. Aortic calcification. No pulmonary infiltrate or consolidation, pleural effusion or pneumothorax is evident. Pulmonary vasc ular interstitium may indicate mild pulmonary venous hypertension. There is left diaphragmatic pleural calcification suggesting possible prior asbestos exposure. Diffuse osteopenia. IMPRESSION: Status post left thoracotomy and chronic left apical capping/scarring Cardiomegaly. Aortic atherosclerosis. Reviewed, dictated and finalized at location B. ET OPERATOR IMPRESSION: Status post left thoracotomy and chronic left apical capping/scarri ng Cardiomegaly. Aortic atherosclerosis.
--- NOTE | ~2020-05-21 | CT_ITS ---
EXAMINATION: CT brain wo con DATE: 05/21/2020 10:06 INDICATION: Unresponsive. TECHNIQUE: Computed tomography (CT) of the head was performed without intravenous contrast. The mA wa s adjusted according to patient size. Iterative reconstruction technique was employed. The dose-lengt h product was 605.33 mGy-cm. COMPARISON: Head CT 05/20/2020 FINDINGS: There is an old infarct in left frontal lobe. There are scattered areas of low attenuation in the cerebral white matter. There is no intracranial hemorrhage, acute infarction, or abnormal intr acranial mass lesion. The ventricles are normal in size. There is mild mucosal thickening in the para nasal sinuses. There are likely changes of ocular lens replacement surgeries. There are changes of ri ght mastoidectomy. IMPRESSION: 1. 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 2. Stable moderate nonspecific cerebral white matter disease, which likely represents chronic small v essel ischemic disease. Reviewed, dictated and finalized at location A. GER CAR IMPRESSION: 1. 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 2. Stable moderate nonspecific cerebral white matter disease, which likely repr esents chronic small vessel ischemic disease.
--- NOTE | ~2020-05-21 | CT_ITS ---
EXAMINATION: CT facial & cervical spine wo DATE: 05/21/2020 10:06 INDICATION: Head injury. TECHNIQUE: Computed tomography (CT) of the maxillofacial region and cervical spine was performed with out intravenous contrast. Automated exposure control and iterative reconstruction technique were empl oyed. The dose-length product was 368.81 mGy-cm. COMPARISON: None FINDINGS: MAXILLOFACIAL CT: There is leftward deviation of the superior nasal septum and rightward deviation of the inferior nasa l septum. No fracture. There is mild mucosal thickening in the paranasal sinuses. There are likely ch anges of ocular lens replacement surgeries. CERVICAL SPINE CT: There is 2 mm retrolisthesis of C3 on C4. Vertebral body heights are normal. There is interbody fusio n at C3-C4. There is severely decreased disc at from C4-C5 through C6-C7. There is severe facet joint osteoarthritis on the left at C1-C2 with hypertrophy. There is scarring at left lung apex. The follo wing disc levels are specifically discussed: C2-C3: There is mild bilateral uncovertebral joint osteoarthritis. There is mild bilateral facet join t osteoarthritis. There is no neural foraminal stenosis. There is no central canal stenosis. C3-C4: There is mild bilateral uncovertebral joint hypertrophy. There is moderate bilateral facet carito nt hypertrophy. There is mild right neural foraminal stenosis. There is mild central canal stenosis. C4-C5: There is severe bilateral uncovertebral joint osteoarthritis. There is severe right and modera te left facet joint osteoarthritis. There is mild bilateral neural foraminal stenosis. There is moder ate central canal stenosis. C5-C6: There is severe bilateral uncovertebral joint osteoarthritis. There is moderate bilateral face t joint osteoarthritis. There is mild right and moderate left neural foraminal stenosis. There is mod erate central canal stenosis. C6-C7: There is severe bilateral uncovertebral joint osteoarthritis. There is severe right and modera te left facet joint osteoarthritis. There is mild bilateral neural foraminal stenosis. There is mild central canal stenosis. C7-T1: There is no uncovertebral joint osteoarthritis. There is mild bilateral facet joint osteoarthr itis. There is no neural foraminal stenosis. There is no central canal stenosis. IMPRESSION: 1. No fracture. 2. Severe cervical spondylosis. Reviewed, dictated and finalized at location A. GER FREELANCE
--- NOTE | 2020-05-21 09:14 | ECG_ITS ---
Measurements Intervals [place] Rate: 79 P: 53 [place]: 191 QRS: 87 QRSD: 92 T: 78 QT: 376 QTc: 433 Interpretive Statements SINUS RHYTHM BORDERLINE AV CONDUCTION DELAY BASELINE ARTIFACT- I, II, III, AVR, AVL, AVF, V1-V2 BORDERLINE ECG Electronically Signed On 05-21-2020 9:27:06 NEGOTIATIONS DIRECTOR by Yovanny Elliott D.O.
[2020-05-21 09:29] LABS: Basophils Absolute Auto 0.1 K/mm3 (0.0-0.1); Basophils Percent Auto 0.9 % (0.2-1.2); Eosinophils Absolute Auto 0.3 K/mm3 (0-0.3); Hematocrit 41.9 % (37.0-47.0); Hemoglobin 13.5 g/dL (12.0-15.0); Immature Granulocyte Absolute 0.03 K/mm3 (0.00-0.031); Immature Granulocyte Percent A 0.3 % (0-0.5); Lymphocytes Absolute Auto 2.76 K/mm3 (0.9-3.2); Lymphocytes Percent Auto 30.9 % (18.3-44.2); Mean Corpuscular HGB Conc 32.2 g/dl (32-36); Mean Corpuscular Hemoglobin 29.3 pg (26-34); Mean Corpuscular Volume 90.9 fl (80-100); Mean Platelet Volume 10.3 fl (7.4-10.4); Monocytes Absolute Auto 0.8 K/mm3 (0.1-0.6); Monocytes Percent Auto 9.1 % (2.6-8.5); Neutrophils Percent Auto 55.8 % (45.5-73.1); Platelet Count Result 234 k/mm3 (150-375); Red Blood Count 4.61 M/mm3 (4.2-5.4); Red Cell Distribution Width 12.4 % (11.5-14.5); White Blood Count 8.9 K/mm3 (4.5-10.0)
[2020-05-21 09:40] LABS: Alanine Aminotransferase 113 U/L (4-35); Albumin Level 4.1 g/dL (3.5-5.1); Alkaline Phosphatase 106 U/L (38-126); Anion Gap 4 mmol/L (8-16); Aspartate Amino Transferase 137 U/L (14-36); Bilirubin,Total 0.5 mg/dL (0.2-1.3); Blood Urea Nitrogen 18 mg/dL (7-17); Calcium 9.4 mg/dL (8.4-10.2); Carbon Dioxide 33 mmol/L (22-30); Chloride 101 mmol/L (98-107); Estimated Glomerular Filt Rate 60; Glucose 119 mg/dL (65-105); Potassium 4.1 mmol/L (3.4-5.0); Sodium 138 mmol/L (137-145)
--- NOTE | 2020-05-21 09:49 | ED.AMS ---
HPI - Altered Mental Status General Chief Complaint: Altered Mental Status Stated Complaint: UNRESPONSIVE Time Seen by Provider: 05/21/20 09:28 History of Present Illness HPI narrative: Patient arrived to the emergency room from home with unresponsiveness. Patient was laying down on one side of the bed, 1 leg out of the bed and the other one still on top of the bed, and was unresponsive. The was trying to help her to get up but somehow slid slowly out of the bed to the floor and hit her face on the nightstand. Patient was discharged from our hospital yesterday. Patient is DNR. Patient son at the bedside Related Data Home Medications Medication Instructions Recorded Confirmed amlodipine 10 mg PO DAILY 05/16/20 05/16/20 isosorbide mononitrate 30 mg PO DAILY 05/16/20 05/16/20 lorazepam 0.5 mg PO HS 05/16/20 05/16/20 memantine 10 mg PO BID 05/16/20 05/16/20 sertraline 50 mg PO HS 05/16/20 05/16/20 valsartan 320 mg PO DAILY 05/16/20 05/16/20 Allergies Allergy/AdvReac Type Severity Reaction Status Date / Time No Known Allergies Allergy Verified 05/16/20 18:21 Review of Systems Review of Systems: ROS unobtainable: Yes unobtainable due to medical condition and unobtainable due to mental status PMFSH Past Medical History Medical History Carotid artery disease Cerebrovascular accident Congestive heart failure Dementia Depression with anxiety History of tuberculosis Hypertension Hypothyroidism Osteoarthritis Surgical History Surgical History History of bilateral cataract extraction History of carotid endarterectomy History of right knee joint replacement History of thoracotomy At age 16 with what sounds like wedge resection related to tuberculosis. Family History Family History Father Tuberculosis Social History Social History Social History: The patient lives in [place] with her . She is a lifelong nonsmoker. No alcohol or illicit substance the use. Her son Tylor is power of transactional attorney. She is a full code. Spiritual care concerns: No Exam Narrative: Exam Narrative: General appearance: Well-developed, well-nourished Skin: Normal color, slight dried blood at the left side of nose internally and externally, no laceration Head: Normocephalic, nontraumatic Eyes: Clear conjunctiv, pupils round, reactive to light. ENT: Oropharynx normal, ears normal, nose normal Neck: C-collar in place Chest and respiratory: Airway patent, no respiratory distress, no accessory muscle use Heart: Regular rate/rhythm Abdomen: Soft, nontender, no organomegaly, quiet bowel sounds Vascular: Normal peripheral pulses, normal capillary refill. Musculoskeletal: Patient is resisting extremity movement. Neurologic: Responding to painful stimulation by withdrawing. Course Course Emergency Course: Stable Reevaluation(s) Reevaluation #1: According to patient's son, patient is back to her normal mental status as before. He requested half-way placement. He is telling me that some arrangement was done with [facility] Currently patient is awake, talking to her son, oriented only to her name. Date: 05/21/20 Time: 12:09 Vital Signs Vital signs: Vital Signs Temperature 36.1 C L 05/21/20 09:03 Pulse Rate 80 05/21/20 09:03 Respiratory Rate 14 05/21/20 09:03 Blood Pressure 176/74 H 05/21/20 09:03 Pulse Oximetry 89 L 05/21/20 09:03 Temperature 36.1 C L 05/21/20 09:03 Pulse Rate 69 1
[2020-05-21 09:53] LABS: Glucose Point of Care 108 (65-105)
[2020-05-21 09:58] LABS: Add Urine Microscopic? NO; Appearance Urine Clear (Clear); Bacteria Urine Trace /hpf; Bilirubin Urine Negative (Negative); Blood Urine Negative (Negative); Color Urine Straw (Yellow); Glucose Urine UA Negative (Negative); Ketones Urine Negative (Negative); Leukocyte Esterase Ur Negative LEU/UL (Negative); Nitrate Urine Negative (Negative); Protein Urine Negative (Negative); RBC Urine 0-2 /hpf (0-2); Specific Grav Ur 1.009 (1.001-1.035); Urobilinogen Urine Negative mg/dL (<2.0); WBC Urine 0-3 /hpf
[2020-05-21 10:02] LABS: Creatine Kinase 51 U/L (30-135)
[2020-05-21 10:15] LABS: Troponin I < 0.012 ng/mL (0.000-0.034)
[2020-05-21 10:16] LABS: Prothrombin Time 13.5 Seconds (11.1-14.7)
[2020-05-21 11:14] LABS: Amphetamine Screen Urine Negative (Negative); Barbiturate Screen Urine Negative (Negative); Benzodiazepines Screen Urine Negative (Negative); Cannabinoid Screen Urine Negative (Negative); Cocaine Screen Urine Negative (Negative); Methadone Screen Urine Negative (Negative); Opiate Screen Urine Negative (Negative); Phencyclidine Screen Urine Negative (Negative)
--- NOTE | 2020-05-21 13:36 | ADMGEN ---
This patient, Judy Pastor, was admitted to 2 Medical Room 257-01. Patient/family oriented to hospital policies and general routines including ID bracelet, bed and alarms, visiting hours, pain management, procedures, bathroom and other care routines, personal items, smoking policy, room service/diet, and visiting hours. Information on how to activate the Rapid Response Team has been discussed. Patient/Family are encouraged to report perceived risks to care and to ask questions if they do not understand what they are told or what they should do.
--- NOTE | 2020-05-21 14:00 | PM.IMHP ---
H&P: HPI History of Present Illness Date/Time: 05/21/20 14:00 Chief Complaint: Unresponsive episode. Narrative: Juyd Pastor is an 84-year-old female with hypertension, hypothyroidism, and dementia who presented to the emergency department earlier today via EMS from home for evaluation after she was found unresponsive in bed by her . She is known to myself and the hospitalist service with a recent admission on 05/16/2020 at which time she had presented to the emergency department with shortness of breath. She was found to be hypoxic with mild pulmonary edema on imaging, admitted on the supposition that she had congestive heart failure. She was seen in consultation by Dr. Funes, who has followed her in the office for many years after suffering a small vasospastic infarction, and he feels that she does not have congestive heart failure. She was found to have bilateral [id number] DVTs with no evidence pulmonary embolism on chest CTA. Unfortunately she developed agitation during the hospitalization, requiring IM Haldol for acute delirium. She was also started on low-dose Ativan for mild anxiety. The following day she was calm and deemed appropriate for discharge. It is my understanding that her Aricept dose was increased and she was discharged with a prescription for 0.5 mg of Ativan p.r.n. q.h.s. for agitation, to be used sparingly. This morning she was unresponsive in bed, apparently with 1 leg hanging over the side of the bed. try to help her back onto the bed however she slid slowly out of the bed hitting her face on the nightstand, before landing on the floor. At the time my evaluation she has her eyes closed and she does everything in opposition to what I try to do during examination, for instance if I attempt to open her eyes she squeezes them shut. If I gently pushed on her chin to open her mouth, she will clench her teeth. It is thus impossible to get a history from the patient. Review of Systems Review of Systems: Narrative: Unable to obtain given patient's current status as detailed above. 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 Congestive heart failure Grade 2 diastolic dysfunction noted on echocardiogram in June 2018. Ejection fraction at that time was visually estimated at 70%. Dementia Depression with anxiety History of coronary vasospasm History of tuberculosis Hypertension Hypothyroidism Osteoarthritis Surgical History Surgical History History of bilateral cataract extraction History of carotid endarterectomy History of right knee joint replacement History of thoracotomy At age 16 with what sounds like wedge resection related to tuberculosis. Family History Family History Father Tuberculosis Social History Social History Social History: The patient lives in [place] with her . She is a lifelong nonsmoker. No alcohol or illicit substance the use. Her son Tylor is power of divorce attorney. She is a full code. Smoking status: Never smoker Alcohol intake: never Substance use: never Substance use type: does not use Spiritual care concerns: No Meds Home Medications and Allergies Home Medications Medication Instructions Recorded Confirmed Type levothyroxine 150 mcg tablet 150 mcg PO DAILY #30 tablet 12/13/19 05/21/20 Rx carvedilol 25 mg tablet 12.5 mg PO Q12H #90 tablet 05/14/20 05/21/20 Rx amlodipine 10 mg PO DAILY 05/16/20 05/21/20 History isosorbide mononitrate 30 mg PO DAILY 05/16/20 05/21/20 History lorazepam 0.5 mg PO HS 05/16/20 05/21/20 History memantine 10 mg PO BID 05/16/20 12
[2020-05-21] MEDS: SODIUM CHLORIDE 0.9% IV 1,000 ML 75 ML IV CONT (16:59)
--- NOTE | 2020-05-21 17:16 | PC.NURSE ---
Rounded on patient and walked into her room to find her IV pulled out with blood everywhere. I attempted to hold pressure to previous IV site and patient swinging at me. Assisted by dry pan charger, [employer] GRADE TEACHER and admin secretary at bedside to hold patient down in order to hold pressure. Patient eventually allowed staff to clean her up, change bed sheets, etc. New IV access placed and wrapped in kerlix. Attempted to start IVF and patient began immediately pulling at IV tubing. IV access saline locked at this time. Will try to restart fluids later.
[2020-05-22] VITALS (7 sets, daily range): BP systolic 93–173; BP diastolic 50–60; PULSE 68–98; RESP 16–20; TEMP 36.4–36.9; O2SAT 92–96
[2020-05-22 05:10] LABS: Basophils Absolute Auto 0.1 K/mm3 (0.0-0.1); Basophils Percent Auto 1.1 % (0.2-1.2); Eosinophils Absolute Auto 0.3 K/mm3 (0-0.3); Eosinophils Percent Auto 3.7 % (0-4.4); Hematocrit 42.6 % (37.0-47.0); Hemoglobin 13.8 g/dL (12.0-15.0); Immature Granulocyte Absolute 0.02 K/mm3 (0.00-0.031); Immature Granulocyte Percent A 0.3 % (0-0.5); Lymphocytes Absolute Auto 2.23 K/mm3 (0.9-3.2); Lymphocytes Percent Auto 31.9 % (18.3-44.2); Mean Corpuscular HGB Conc 32.4 g/dl (32-36); Mean Corpuscular Hemoglobin 29.6 pg (26-34); Mean Corpuscular Volume 91.2 fl (80-100); Mean Platelet Volume 10.4 fl (7.4-10.4); Monocytes Absolute Auto 0.8 K/mm3 (0.1-0.6); Monocytes Percent Auto 11.2 % (2.6-8.5); Neutrophils Absolute Auto 3.6 K/mm3 (1.3-6.7); Neutrophils Percent Auto 51.8 % (45.5-73.1); Platelet Count Result 264 k/mm3 (150-375); Red Blood Count 4.67 M/mm3 (4.2-5.4); Red Cell Distribution Width 12.2 % (11.5-14.5)
[2020-05-22 05:24] LABS: Alanine Aminotransferase 91 U/L (4-35); Albumin Level 3.8 g/dL (3.5-5.1); Alkaline Phosphatase 104 U/L (38-126); Anion Gap 5 mmol/L (8-16); Aspartate Amino Transferase 88 U/L (14-36); Bilirubin,Total 0.6 mg/dL (0.2-1.3); Blood Urea Nitrogen 13 mg/dL (7-17); CRP 0.8 mg/dL (<1.0); Calcium 9.2 mg/dL (8.4-10.2); Carbon Dioxide 33 mmol/L (22-30); Chloride 101 mmol/L (98-107); Creatine Kinase 37 U/L (30-135); Estimated CRCL calculation 45 ml/min; Estimated Glomerular Filt Rate > 60; Glucose 101 mg/dL (65-105); Magnesium 2.1 mg/dL (1.6-2.3); Potassium 3.9 mmol/L (3.4-5.0); Sodium 139 mmol/L (137-145)
[2020-05-22] MEDS: VALSARTAN 160 MG TABLET 320 MG PO (05:38)
[2020-05-22] MEDS: amLODIPine BESYLATE 5 MG TABLET 10 MG PO (05:38)
[2020-05-22] MEDS: carvediloL 12.5 MG TABLET PO ×2 (05:38→17:29)
[2020-05-22] MEDS: LEVOTHYROXINE SODIUM 150 MCG TABLET PO (05:38)
[2020-05-22] MEDS: MEMANTINE 10 MG TABLET PO ×2 (05:39→17:28)
[2020-05-22] MEDS: ISOSORBIDE MONONITRATE 30 MG TAB.ER.24H PO (05:39)
[2020-05-22] MEDS: SODIUM CHLORIDE 0.9% IV 1,000 ML 75 ML IV CONT (08:51)
--- NOTE | 2020-05-22 14:04 | PM.IMPN ---
Progress Note: A&P Assessment and Plan (1) Unresponsive episode: Code(s): R41.89 - Other symptoms and signs involving cognitive functions and awareness Status: Acute Assessment and Plan: Unclear etiology or if patient was truly unresponsive but suspect underlying dementia playing a role with possible new medications altering her mentation vs possible psych component as patient seemingly was aware of the episode but states I think I just got discharged too early . No evidence of infection. No other complaints at time of event or currently. Benzodiazepine has been held; likely will d/c after discharge Will continue other home medications CC following and arranging for patient to be discharged to [facility] Neurologic checks to be performed q.4 hours. fall precautions. (2) Fall from bed: Code(s): W06.XXXA - Fall from bed, initial encounter Status: Acute Assessment and Plan: PT/OT eval Likely discharge to [facility] after evals (3) Dementia: Code(s): F03.90 - Unspecified dementia without behavioral disturbance Status: Acute Assessment and Plan: A&Ox 4 for me today Continue home meds Advised prompt follow up with Dr. Hays as an outpatient who has seen her in the past (4) Elevated LFTs: Code(s): R79.89 - Other specified abnormal findings of blood chemistry Status: Acute Assessment and Plan: Unclear Etiology, although trending down. No abdominal pain Monitor Hepatic panel in am (5) Hypertension: Code(s): I10 - Essential (primary) hypertension Status: Acute Assessment and Plan: BP running a bit high this morning but dropped to 90s sys after medication Continue home meds Monitor (6) Anticoagulant long-term use: Code(s): Z79.01 - [facility] (current) use of anticoagulants Status: Acute Assessment and Plan: Eliquis had been held due to recent head trauma Will resume tomorrow morning Discussed patient's case with son Justin at request of CC. In addition to her dementia, we also discussed her anticoagulation. Advised that if she continues to fall, then recommend holding anticoagulation and possibly proceed with serial imaging. Also advised discussing with PCP (7) Hypothyroidism: Code(s): E03.9 - Hypothyroidism, unspecified Status: Acute Assessment and Plan: TSH WNL 05/20 Continue home meds Subjective Date/time seen: 05/22/20 14:04 Interval history: Patient is a 84 yo F with history of hypertension, hypothyroidism, and dementia who is seen in follow up for evaluation of episode of being unresponsive in bed at home with subsequent head injury after hitting head on night stand. Patient is A&Ox4 for me this afternoon. She has no complaints for me. Nursing reports that she is having difficulty urinating today and is retaining >300 mL on bladder scan, although patient states she has urge to urinate. Denies f/c/s, headaches, dizziness, lightheadedness, changes in v/h, cp/palpitations, sob/cough, n/v/d/c, abd pain, changes in BMs, dysuria, calf pain/swelling. Of note, when asking her if she knew why she was in the hospital, she states because I have dementia and was acting a bit loopy and recalls the episode at home where she was not responding and continues on to state that she thinks she got discharged too early from her previous stay. Review of Systems Review of Systems: All systems reviewed & are unremarkable except as noted in HPI and below Exam Narrative: Exam Narrative: General: Patient resting supine in bed in no acute distress. A&Ox4. Answers questions appropriately HEENT: Normocephalic, EOMI, oral mucosa moist
--- NOTE | 2020-05-22 15:37 | PC.NURSE ---
pt able to urinate aprox 150ml on BSC, will continue to monitor
[2020-05-22] MEDS: TAMSULOSIN HCL 0.4 MG CAPSULE PO (15:53)
[2020-05-22] MEDS: DONEPEZIL HCL 10 MG TABLET PO (17:28)
[2020-05-22] MEDS: SERTRALINE HCL 25 MG TABLET 50 MG PO (21:00)
[2020-05-22] MEDS: LORazepam (*CRX) 0.5 MG TABLET 0.25 MG PO (23:00)
[2020-05-23 04:00] VITALS: BP 145/59; PULSE 69; RESP 18; TEMP 36.5; O2SAT 94
[2020-05-23 05:52] LABS: Alanine Aminotransferase 60 U/L (4-35); Albumin Level 3.7 g/dL (3.5-5.1); Alkaline Phosphatase 85 U/L (38-126); Anion Gap 5 mmol/L (8-16); Aspartate Amino Transferase 50 U/L (14-36); Bilirubin,Total 0.5 mg/dL (0.2-1.3); Blood Urea Nitrogen 17 mg/dL (7-17); Carbon Dioxide 34 mmol/L (22-30); Chloride 101 mmol/L (98-107); Estimated CRCL calculation 40 ml/min; Estimated Glomerular Filt Rate 60; Glucose 107 mg/dL (65-105); Potassium 3.8 mmol/L (3.4-5.0); Sodium 140 mmol/L (137-145)
[2020-05-23] MEDS: LEVOTHYROXINE SODIUM 150 MCG TABLET PO (05:59)
[2020-05-23 07:00] LABS: Hepatitis B Surface Antigen Negative (Negative)
[2020-05-23 07:06] LABS: HAV RESULT Negative (Negative); Hepatitis B Core IgM Result Negative (Negative)
[2020-05-23 07:17] LABS: Hepatitis C Virus Antibody Negative (Negative)
[2020-05-23 08:47] VITALS: PULSE 74
[2020-05-23] MEDS: carvediloL 12.5 MG TABLET PO (08:47)
[2020-05-23] MEDS: amLODIPine BESYLATE 5 MG TABLET 10 MG PO (08:48)
[2020-05-23] MEDS: VALSARTAN 160 MG TABLET 320 MG PO (08:48)
[2020-05-23] MEDS: APIXABAN 5 MG TABLET 10 MG PO (08:49)
[2020-05-23] MEDS: MEMANTINE 10 MG TABLET PO (08:49)
[2020-05-23] MEDS: ISOSORBIDE MONONITRATE 30 MG TAB.ER.24H PO (08:49)
--- NOTE | 2020-05-23 10:18 | PM.DS ---
DS: Admitting Diagnosis Admitting Diagnosis Admitting Diagnosis: Unresponsive episode DS: Discharge Diagnosis Discharge Diagnosis (1) Unresponsive episode: Code(s): R41.89 - Other symptoms and signs involving cognitive functions and awareness Status: Acute Assessment and Plan: Unclear etiology or if patient was truly unresponsive but suspect underlying dementia playing a role with possible new medications altering her mentation vs possible psych component as patient seemingly was aware of the episode but states I think I just got discharged too early . No evidence of infection. No other complaints at time of event or currently. Benzodiazepine was given at lowered dose last night. Will give short course of lowered dose Will continue other home medications Discharge today to [facility] F/u with PCP (2) Fall from bed: Code(s): W06.XXXA - Fall from bed, initial encounter Status: Acute Assessment and Plan: PT/OT (3) Dementia: Code(s): F03.90 - Unspecified dementia without behavioral disturbance Status: Acute Assessment and Plan: A&Ox 4 for me again today Continue home meds Advised prompt follow up with Dr. Hays as an outpatient who has seen her in the past (4) Elevated LFTs: Code(s): R79.89 - Other specified abnormal findings of blood chemistry Status: Acute Assessment and Plan: Unclear Etiology, although trending down. No abdominal pain. 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 Initially held due to recent fall Discussed patient's case with son Justin at request of CC. In addition to her dementia, we also discussed her anticoagulation. Advised that if she continues to fall, then recommend holding anticoagulation and possibly proceed with serial imaging. Also advised discussing with PCP (7) Hypothyroidism: Code(s): E03.9 - Hypothyroidism, unspecified Status: Acute Assessment and Plan: TSH WNL 05/20 Continue home meds DS: Summary Hospital Course Reason for hospitalization: Unresponsive episode Hospital Course: Date of arrival: 05/21/20 Date of discharge: 05/23/20 Patient is a 84-year-old female with hypertension, hypothyroidism, and dementia who presented to the emergency department on 05/21 via EMS from home for evaluation after she was found unresponsive in bed by her . Patient had recently been admitted and discharged the day prior to arrival. There was reports of patient hitting head on the nightstand after she slid out of her bed. While in the ED, VS were stable, patient afebrile, labs unremarkable. Head CT was grossly unremarkable for acute intracranial process. Patient admitted under setting of unresponsive episode. Patient was admitted to the hospitalist service for further management/treatment. Patient initially was uncooperative during admission visit, however on subsequent visits, patient was A&O, cooperative, but pleasantly confused. Her benzodiazepine was initially held but then resumed at half the dose given increase anxiety. Plan was for her to be discharged to [facility] after evaluation from the facility. Her Eliquis was initially held given her head injury, but was resumed on 05/23. Plan was for discharge to [facility] with follow up with her PCP. She was given instructions for
[2020-05-23 14:00] VITALS: BP 132/59; PULSE 88; RESP 18; TEMP 36.2; O2SAT 99
== END 2020-05-23 15:45 ==
LOC: ANHED 09:28 → ANH2MED 13:00
PROVIDERS: Physician Assistant; Admitting Provider Internal Medicine; Emergency Provider Emergency Medicine; PCP Physician Assistant; Visit Provider Physician Assistant
DX: R41.89 Other symptoms and signs involving cognitive functions and awareness (principal); S09.8XXA Other specified injuries of head, initial encounter; W06.XXXA Fall from bed, initial encounter; F03.90 Unspecified dementia, unspecified severity, without behavioral disturbance, psychotic disturbance, mood disturbance, and anxiety; R79.89 Other specified abnormal findings of blood chemistry; R94.5 Abnormal results of liver function studies; I11.0 Hypertensive heart disease with heart failure; I50.30 Unspecified diastolic (congestive) heart failure; E03.9 Hypothyroidism, unspecified; I25.10 Atherosclerotic heart disease of native coronary artery without angina pectoris; F41.8 Other specified anxiety disorders; M19.90 Unspecified osteoarthritis, unspecified site; Z86.11 Personal history of tuberculosis; Z86.73 Personal history of transient ischemic attack (TIA), and cerebral infarction without residual deficits; Z79.01 Long term (current) use of anticoagulants
CPT/HCPCS: 36415; 51702; 70450; 70486; 71045; 72125; 80048; 80053; 80074; 80076; 80307; 81003; 82550; 83735; 84484; 85025; 85610; 86140; 87040; 93005; 96361; 96365; 97161; 97165; 99285; A9270; G0378; J0131; J7030

== ENCOUNTER 2020-05-31 10:40 | Observation (INO) | payer MEDICARE, BC, SELFPAY ==
[2020-05-31] VITALS (37 sets, daily range): BP systolic 111–191; BP diastolic 52–76; PULSE 63–82; RESP 11–20; TEMP 36.1–36.6; O2SAT 91–100; BMI 25.2
--- NOTE | ~2020-05-31 | CT_ITS ---
EXAMINATION: CT cervical spine wo con EXAM DATE: 05/31/2020 12:23 INDICATION: Fall, head injury. TECHNIQUE: Spiral CT of the cervical spine was performed without contrast. Axial images were reviewe d. Coronal and sagittal reformatted images were also reviewed. The dose-length product (DLP) for thi s examination was 283.23 mGy-cm. The exposure was tailored according to patient size (auto mA exposu re control), and iterative reconstruction (ASIR) was used as additional dose reduction technique. Com parison is made to prior examination from 05/21/2020. FINDINGS: There is no evidence of acute cervical fracture. The odontoid process is intact. Pre-dens space is normal. Prevertebral soft tissue is normal. There are no soft tissue abnormalities identi fied. There is no disc space widening or traumatic vertebral body subluxation suspected. Advanced c ervical spondylosis. Osseous fusion of the C3-4 vertebral bodies. Left apical capping, upper lobe sc arring. A detailed level by level evaluation of spondylosis can be added as addendum if requested. IMPRESSION: 1. No acute cervical fracture. 2. Advanced cervical spondylosis. Reviewed, dictated and finalized at location A. ING DEPARTMENT END FINDER
--- NOTE | ~2020-05-31 | XR_ITS ---
EXAMINATION: XR chest 1V EXAM DATE: 05/31/2020 12:24 INDICATION: Fall, unresponsive. TECHNIQUE: Portable AP frontal chest x-ray was obtained. Comparison is made to prior examination from 05/21/2020, 05/16/2020. FINDINGS: There is left apical scarring and capping. Calcified left subpulmonic pleural plaque. There is aortic arteriosclerosis. No confluent consolidation, pneumothorax or pleural effusion suspected. There are mild bony degenerative changes. IMPRESSION: Chronic findings as above. Reviewed, dictated and finalized at location A. C LEADER IMPRESSION: Chronic findings as above.
--- NOTE | ~2020-05-31 | MR_ITS ---
EXAMINATION: MR brain/brain stem wo/w con EXAM DATE: 06/01/2020 09:18 INDICATION: Unresponsive episode, pinpoint pupils. TECHNIQUE: Magnetic resonance imaging (MRI) of the brain/brain stem obtained without contrast. Sagit reilly T1, axial diffusion, gradient echo (T2*), T1, T2, FLAIR sequences obtained. Patient was then inj ected with 13 cc intravenous Multihance contrast. Axial and coronal postcontrast T1 weighted sequence s obtained. Correlation is made to yesterday's head CT. FINDINGS: There are no areas of restricted diffusion to suggest acute infarction. There is no acute hemorrhage seen on the T2*, a hemosiderin sensitive sequence. No intraparenchymal brain mass lesion. There is moderate-sized old left frontal lobe infarction. There is mild to moderate periventricula r and subcortical T2/FLAIR signal hyperintensity, nonspecific but probably related to small vessel is chemic disease (microangiopathy). There is mild prominence of the sulci and ventricles related to c erebral atrophy. There are no extra-axial collections. Flow voids are seen in the cerebral arterie s on the T2-weighted sequences consistent with their expected patency. Patient has had bilateral ocu lar lens surgery. Soft tissue is unremarkable. There are no areas of abnormal enhancement on the po stcontrast images. IMPRESSION: 1. Moderate size old left frontal lobe infarction. 2. Chronic age related findings. Reviewed, dictated and finalized at location A. ITY CONTROL PUNCHER
--- NOTE | ~2020-05-31 | CT_ITS ---
EXAMINATION: CT brain wo con EXAM DATE: 05/31/2020 12:22 INDICATION: Fall, head injury. Unresponsive. TECHNIQUE: Spiral CT of the head was performed without contrast. Axial, coronal and sagittal images were reviewed. The dose-length product (DLP) for this examination was 605.33 mGy-cm. The exposure w as tailored according to patient size, and iterative reconstruction (ASIR) was used as additional dos e reduction technique. Comparison is made to prior examination from 05/21/2020. FINDINGS: There is no acute intraparenchymal hemorrhage. No evidence of intraparenchymal brain mass lesion. No evidence of acute infarction. Please note that initial head CT has limited sensitivity f or small or acute infarctions. There is moderate-sized old left frontal lobe cortical infarction. Hy perostosis frontalis. There is mild to moderate periventricular and subcortical hypodensity, nonspec ific but probably related to small vessel ischemic disease. There is mild prominence of the sulci a nd ventricles related to cerebral atrophy. There is intracranial carotid arteriosclerosis. There a re no extra-axial collections. There is no mass effect or midline shift. The orbits are unremarkabl e. Soft tissue is unremarkable. The visualized sinuses and mastoid air cells are well aerated. Th ere is no significant interval change. IMPRESSION: 1. No acute intracranial findings. 2. Chronic age related findings. 3. Moderate-sized old left frontal lobe infarction. Reviewed, dictated and finalized at location A. NICAL SALES SUPPORT MANAGER
--- NOTE | 2020-05-31 11:09 | ECG_ITS ---
Measurements Intervals [place] Rate: 62 P: 95 SC: 178 QRS: 38 QRSD: 101 T: 78 QT: 424 QTc: 432 Interpretive Statements SINUS RHYTHM ATRIAL PREMATURE COMPLEX BASELINE ARTIFACT- I, II, III, AVR, AVL, AVF, V1 BORDERLINE ECG Electronically Signed On 05-31-2020 14:16:52 SECRETARY TO THE VICE PRESIDENT by Yovanny Elliott D.O.
[2020-05-31 11:27] LABS: Glucose Point of Care 141 (65-105)
[2020-05-31 11:39] LABS: Alveolar/Arterial O2 Gradient 3.4 mmHg; Base Excess ABG 3.6 mEq/l (+/-2.0); Fractional Inspired Oxygen 28 %; HCO3 ABG 29.1 mEq/l (22.0-26.0); Oxygen Content ABG 19.7 %vol (16.0-22.0); Oxygen Saturation ABG 98.8 % (95.0-100.0); Oxyhemoglobin 97.5 % THb (90.0-100.0); PCO2 ABG 47.1 mmHg (35.0-45.0); PO2 ABG 140.7 mmHg (80.0-100.0); PO2 FiO2 Ratio Arterial Blood 5.03 %; Total Hemoglobin 14.2 g/dL (12.0-18.0); pH ABG 7.408 (7.350-7.450)
[2020-05-31 11:39] LABS: Basophils Absolute Auto 0.1 K/mm3 (0.0-0.1); Basophils Percent Auto 0.9 % (0.2-1.2); Eosinophils Absolute Auto 0.2 K/mm3 (0-0.3); Hematocrit 42.7 % (37.0-47.0); Hemoglobin 13.9 g/dL (12.0-15.0); Immature Granulocyte Absolute 0.02 K/mm3 (0.00-0.031); Immature Granulocyte Percent A 0.3 % (0-0.5); Lymphocytes Absolute Auto 1.52 K/mm3 (0.9-3.2); Lymphocytes Percent Auto 19.6 % (18.3-44.2); Mean Corpuscular HGB Conc 32.6 g/dl (32-36); Mean Corpuscular Hemoglobin 29.6 pg (26-34); Mean Corpuscular Volume 90.9 fl (80-100); Mean Platelet Volume 10.9 fl (7.4-10.4); Monocytes Absolute Auto 0.9 K/mm3 (0.1-0.6); Neutrophils Absolute Auto 5.1 K/mm3 (1.3-6.7); Neutrophils Percent Auto 65.2 % (45.5-73.1); Platelet Count Result 207 k/mm3 (150-375); Red Cell Distribution Width 12.7 % (11.5-14.5); White Blood Count 7.8 K/mm3 (4.5-10.0)
[2020-05-31 11:41] LABS: Device NASAL CANNULA; Site Drawn RIGHT BRACHIAL
[2020-05-31 11:42] LABS: Add Urine Microscopic? YES; Appearance Urine Clear (Clear); Bilirubin Urine Negative (Negative); Blood Urine Negative (Negative); Color Urine Yellow (Yellow); Glucose Urine UA Negative (Negative); Ketones Urine Trace mg/dL (Negative); Leukocyte Esterase Ur Negative LEU/UL (Negative); Mucus Urine Rare /lpf; Nitrate Urine Positive (Negative); Protein Urine 1+ mg/dL (Negative); RBC Urine 0-2 /hpf (0-2); Specific Grav Ur 1.014 (1.001-1.035); Squamous Epithelial Cell Urine Rare /hpf (Few); Urobilinogen Urine Negative mg/dL (<2.0)
[2020-05-31 11:47] LABS: INR 1.2; Prothrombin Time 15.9 Seconds (11.1-14.7)
[2020-05-31 11:48] LABS: Partial Thromboplastin Time 31.1 SECONDS (22.3-36.8)
[2020-05-31 11:49] LABS: Ammonia < 9 umol/L (9-30); Ethanol < 10 mg/dL (<10)
[2020-05-31 11:50] LABS: Alanine Aminotransferase 20 U/L (4-35); Albumin Level 3.7 g/dL (3.5-5.1); Alkaline Phosphatase 78 U/L (38-126); Anion Gap 8 mmol/L (8-16); Aspartate Amino Transferase 28 U/L (14-36); Bilirubin,Total 0.5 mg/dL (0.2-1.3); Blood Urea Nitrogen 17 mg/dL (7-17); Calcium 9.4 mg/dL (8.4-10.2); Carbon Dioxide 32 mmol/L (22-30); Chloride 100 mmol/L (98-107); Creatine Kinase 38 U/L (30-135); Estimated CRCL calculation 34 ml/min; Estimated Glomerular Filt Rate 53; Glucose 135 mg/dL (65-105); Potassium 3.4 mmol/L (3.4-5.0); Sodium 140 mmol/L (137-145)
[2020-05-31 11:57] LABS: Amphetamine Screen Urine Negative (Negative); Barbiturate Screen Urine Negative (Negative); Benzodiazepines Screen Urine Negative (Negative); Cannabinoid Screen Urine Negative (Negative); Cocaine Screen Urine Negative (Negative); Methadone Screen Urine Negative (Negative); Opiate Screen Urine Negative (Negative); Phencyclidine Screen Urine Negative (Negative)
[2020-05-31 12:08] LABS: Troponin I 0.048 ng/mL (0.000-0.034)
--- NOTE | 2020-05-31 13:02 | ED.AMS ---
HPI - Altered Mental Status General Chief Complaint: Altered Mental Status Stated Complaint: unresponsive Time Seen by Provider: 05/31/20 11:07 Source: EMS Mode of arrival: EMS Limitations: clinical condition History of Present Illness HPI narrative: This patient is an 84 year old female who presents from [facility] for evaluation of unresponsiveness. EMs states patient was found on the floor at the facility. On arrival patient will respond to painful stimuli. EMS states no obvious signs of injury were found. They report patient has history of having similar episodes. On review of her medical records she was admitted to hospital this month for a similar episode. Related Data Home Medications Medication Instructions Recorded Confirmed amlodipine 10 mg PO DAILY 05/16/20 05/21/20 isosorbide mononitrate 30 mg PO DAILY 05/16/20 05/21/20 memantine 10 mg PO BID 05/16/20 05/21/20 sertraline 50 mg PO HS 05/16/20 05/21/20 valsartan 320 mg PO DAILY 05/16/20 05/21/20 Eliquis See Rx Instructions .ROUTE .COMPLEX 05/21/20 05/21/20 omeprazole 20 mg PO DAILY 05/31/20 Allergies Allergy/AdvReac Type Severity Reaction Status Date / Time No Known Allergies Allergy Verified 05/31/20 18:48 Review of Systems Review of Systems: ROS unobtainable: Yes unobtainable due to mental status PMFSH Past Medical History Medical History Anticoagulant long-term use Carotid artery disease Cerebrovascular accident 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 Congestive heart failure Grade 2 diastolic dysfunction noted on echocardiogram in June 2018. Ejection fraction at that time was visually estimated at 70%. Dementia Depression with anxiety History of coronary vasospasm History of tuberculosis Hypertension Hypothyroidism Osteoarthritis Surgical History Surgical History History of bilateral cataract extraction History of carotid endarterectomy History of right knee joint replacement History of thoracotomy At age 16 with what sounds like wedge resection related to tuberculosis. Family History Family History Father Tuberculosis Social History Social History Social History: The patient lives in [place] with her . She is a lifelong nonsmoker. No alcohol or illicit substance the use. Her son Tylor is power of personal injury attorney. She is a full code. Smoking status: Never smoker Alcohol intake: never Substance use: never Substance use type: does not use Spiritual care concerns: No Exam Const: General: no acute distress HENMT: Head: normocephalic and atraumatic Face and sinus: face symmetric Throat: posterior oropharynx normal and tonsils normal Eyes: EOM: EOMs intact bilaterally Other: pinpoint pupils Resp: Effort & Inspection: normal respiratory effort and no use of accessory muscles Auscultation: clear to auscultation bilaterally Cardio: Rate: regular rate Rhythm: regular rhythm Heart sounds: no murmurs Skin: General skin exam: normal color Rashes: no rashes Neuro: General: moves all extremities and no focal motor deficits Other: patient will grab my hand with sternum rub. She will also open her eyes. She will not speak, Course Reevaluation(s) Reevaluation #1: Patient is still not doing anything on command. I asked if she wanted to talk and she seems to shake head no with eyes closed. Date: 05/31/20 Time: 15:00 Consultations Consultation #1: I discussed case with keerthi payne. She accepts patient to hospitalist service to [facility] for observation Date: 05/31/20 Time: 13:55 Vital Signs Vital signs: Vital Signs Temperature 97.9 F 05/31/20 10:42 Pulse Rate 68 05/31/20 10:42 Respiratory Rate 14 05/31/20 10:
[2020-05-31 16:35] LABS: Troponin I 0.036 ng/mL (0.000-0.034)
--- NOTE | 2020-05-31 18:16 | ADMGEN ---
This patient, Judy Pastor, was admitted to 2 Medical Room 245-. Patient/family oriented to hospital policies and general routines including ID bracelet, bed and alarms, visiting hours, pain management, procedures, bathroom and other care routines, personal items, smoking policy, room service/diet, and visiting hours. Information on how to activate the Rapid Response Team has been discussed. Patient/Family are encouraged to report perceived risks to care and to ask questions if they do not understand what they are told or what they should do.
--- NOTE | 2020-05-31 20:00 | PM.IMHP ---
H&P: HPI History of Present Illness Date/Time: 05/31/20 20:00 Chief Complaint: Possible stroke. Narrative: Judy Pastor is an 84-year-old female with hypertension, hypothyroidism, and dementia who presented to the emergency department earlier today via EMS from [facility] for evaluation of a possible stroke. This will be the patient's 3rd admission in the last several weeks. I originally admitted her to the hospital on 05/16/2020 after she presented with shortness of breath. Chest x-ray showed mild pulmonary edema and she was hypoxic and she was admitted on the supposition that she had congestive heart failure however Dr. Funes saw her in consultation and felt that she does not in fact have CHF. She was found to have bilateral [id number] DVTs but no evidence of PE on chest CTA. She became agitated during that hospitalization and required IM Haldol for acute delirium. She was started on low-dose Ativan for mild anxiety and was able to be discharged home the following day as she was calm and at baseline. I readmitted her to the hospital on 05/19/2020 after she was unresponsive after falling out of bed. It is unclear as to why she had a fall and why she was unresponsive but more likely it was multifactorial in etiology, including the addition of Ativan as well as behavioral disturbances associated with her dementia. Unfortunately it sounds as though her dementia progressed quite quickly and family made the decision to place her in memory care. Today she was found on the floor in her room by staff at [facility], not responding with pinpoint pupils. Brain CT did not show any acute findings but did show an old infarct. At the time of my evaluation she has her eyes closed and does not following commands. In fact she does everything and opposition to what I am trying to do during her exam, for instance she closes her eyes tightly when I try to open them and she closes her mouth shut when I try to open it. She provides no history. Review of Systems Review of Systems: Narrative: Unable to be obtained given current clinical condition as above. 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 Congestive heart failure Grade 2 diastolic dysfunction noted on echocardiogram in June 2018. Ejection fraction at that time was visually estimated at 70%. Dementia Depression with anxiety History of coronary vasospasm History of tuberculosis Hypertension Hypothyroidism Osteoarthritis Surgical History Surgical History History of bilateral cataract extraction History of carotid endarterectomy History of right knee joint replacement History of thoracotomy At age 16 with what sounds like wedge resection related to tuberculosis. Family History Family History Father Tuberculosis Social History Social History (Updated 05/31/20 @ 21:27 by Meg Payne PA-C) Social History: The patient recently moved into [facility] care at [facility]. Prior to that she was living in [place] with her . The She is a lifelong nonsmoker. No alcohol or illicit substance the use. Her son Tylor is power of sports attorney. She is listed as a do not resuscitate. Smoking status: Never smoker Alcohol intake: never Substance use: never Substance use type: does not use Spiritual care concerns: No Meds Home Medications and Allergies Home Medications Medication Instructions Recorded Confirmed Type levothyroxine 150 mcg tablet 150 mcg PO DAILY #30 tablet 12/13/19 05/31/20 Rx carvedilol 25 mg tablet 12.5 mg PO Q12H #90 tablet 05/14/20 05/31/20 Rx amlodipine 10 mg PO DAILY 05/16/20 05/31/20 History isosorbide mono
[2020-05-31] MEDS: APIXABAN 5 MG TABLET PO (22:49)
[2020-05-31] MEDS: MEMANTINE 10 MG TABLET PO (22:50)
[2020-05-31] MEDS: carvediloL 12.5 MG TABLET PO (22:50)
[2020-05-31] MEDS: DONEPEZIL HCL 10 MG TABLET PO (22:50)
[2020-05-31] MEDS: SERTRALINE HCL 50 MG TABLET PO (22:50)
--- NOTE | 2020-05-31 23:04 | PC.NURSE ---
pt now up in bed talking just keeps stating she wants 2 sleeping pills to help her sleep. She is able to tell me she is at [facility] but cannot tell me the year or month. She is unable to tell me what brought her to the hospital.
[2020-06-01] VITALS: PULSE 82
[2020-06-01 04:00] VITALS: BP 152/64; PULSE 71; PULSE 75; RESP 20; TEMP 36.2; O2SAT 92
[2020-06-01] MEDS: LEVOTHYROXINE SODIUM 150 MCG TABLET PO (05:49)
[2020-06-01 08:00] VITALS: PULSE 91
[2020-06-01 08:28] VITALS: PULSE 86
[2020-06-01] MEDS: carvediloL 12.5 MG TABLET PO (08:28)
[2020-06-01] MEDS: MEMANTINE 10 MG TABLET PO (08:28)
[2020-06-01] MEDS: PANTOPRAZOLE 40 MG TABLET PO (08:28)
[2020-06-01] MEDS: ISOSORBIDE MONONITRATE 30 MG TAB.ER.24H PO (08:28)
[2020-06-01] MEDS: amLODIPine BESYLATE 5 MG TABLET 10 MG PO (08:28)
[2020-06-01] MEDS: APIXABAN 5 MG TABLET PO (08:28)
[2020-06-01] MEDS: VALSARTAN 160 MG TABLET 320 MG PO (08:28)
[2020-06-01 08:41] LABS: Hematocrit 44.6 % (37.0-47.0); Hemoglobin 14.6 g/dL (12.0-15.0); Mean Corpuscular HGB Conc 32.7 g/dl (32-36); Mean Corpuscular Volume 91.6 fl (80-100); Mean Platelet Volume 10.8 fl (7.4-10.4); Platelet Count Result 226 k/mm3 (150-375); Red Blood Count 4.87 M/mm3 (4.2-5.4); Red Cell Distribution Width 12.8 % (11.5-14.5); White Blood Count 7.3 K/mm3 (4.5-10.0)
[2020-06-01] MEDS: LORazepam INJ (*CRX) 2 MG/ML VIAL 1 MG IV PUSH (08:46)
[2020-06-01 09:08] LABS: Anion Gap 9 mmol/L (8-16); Blood Urea Nitrogen 14 mg/dL (7-17); Calcium 9.5 mg/dL (8.4-10.2); Carbon Dioxide 34 mmol/L (22-30); Chloride 98 mmol/L (98-107); Estimated CRCL calculation 42 ml/min; Estimated Glomerular Filt Rate > 60; Glucose 102 mg/dL (65-105); Magnesium 1.9 mg/dL (1.6-2.3); Potassium 3.1 mmol/L (3.4-5.0); Sodium 141 mmol/L (137-145)
--- NOTE | 2020-06-01 11:52 | PM.DS ---
DS: Admitting Diagnosis Admitting Diagnosis Admitting Diagnosis: Possible stroke DS: Summary Hospital Course Reason for hospitalization: Chief Complaint: Possible stroke. Narrative: Judy Pastor is an 84-year-old female with hypertension, hypothyroidism, and dementia who presented to the emergency department earlier today via EMS from [facility] for evaluation of a possible stroke. This will be the patient's 3rd admission in the last several weeks. I originally admitted her to the hospital on 05/16/2020 after she presented with shortness of breath. Chest x-ray showed mild pulmonary edema and she was hypoxic and she was admitted on the supposition that she had congestive heart failure however Dr. Funes saw her in consultation and felt that she does not in fact have CHF. She was found to have bilateral [id number] DVTs but no evidence of PE on chest CTA. She became agitated during that hospitalization and required IM Haldol for acute delirium. She was started on low-dose Ativan for mild anxiety and was able to be discharged home the following day as she was calm and at baseline. I readmitted her to the hospital on 05/19/2020 after she was unresponsive after falling out of bed. It is unclear as to why she had a fall and why she was unresponsive but more likely it was multifactorial in etiology, including the addition of Ativan as well as behavioral disturbances associated with her dementia. Unfortunately it sounds as though her dementia progressed quite quickly and family made the decision to place her in memory care. Today she was found on the floor in her room by staff at [facility], not responding with pinpoint pupils. Brain CT did not show any acute findings but did show an old infarct. At the time of my evaluation she has her eyes closed and does not following commands. In fact she does everything and opposition to what I am trying to do during her exam, for instance she closes her eyes tightly when I try to open them and she closes her mouth shut when I try to open it. She provides no history. Hospital Course: Patient is a resident of [facility] was sent for possible stroke, as patient history of CVA in the past, patient had CT scan of head and MRI of brain without any acute injury. patient is at her baseline, will discharge back to [facility] today. Status at Discharge Functional status at discharge: uses cane/walker Time Spent with Patient Time attestation: Total time spent providing and/or coordinating discharge services: Patient was seen and examined at the time of the discharge Condition at discharge is stable Code status: Full code. Time spent preparing discharge summary, discharge medications, discussing discharge planning with case maker and patient is 35 minutes. Time spent: Greater than 30 minutes Exam Narrative: Exam Narrative: Elderly frail Patient is comfortable, NAD HEENT: eyes are clear and none icteric LUNGS:CTA HEART: RR S1S2 ABD: BS+, Soft and nontender Lower extremities: no edema SKIN: nonjaundiced Neuro: grossly intact. DS: Data Data Completed and Pending Labs on day of discharge: Labs from last 24 hours 06/01/20 06/01/20 05/31/20 08:05 08:05 18:44 WBC 7.3 RBC 4.87 Hgb 14.6 Hct 44.6 MCV 91.6 MCH 30.0 MCHC 32.7 RDW 12.8 Plt Count 226 MPV 10.8 H Sodium 141 Potassium 3.1 L Chloride 98 Carbon Dioxide 34 H Anion Gap 9 BUN 14 Creatinine 0.80 Estim Creat Clear Calc 42 Estimated GFR > 60 Glucose 102 Calcium 9.5 Magnesium 1.9 Troponin I 0.030 TSH Urine Opiates Screen Urine Methadone Screen Ur Barbiturates Screen Ur Phencyclidine Scrn Ur Amphetamine Screen U Benzodiazepines Scrn Urine Cocaine Screen U Cannabinoids Screen 05/31/20 05/31/20 05/31/20 16:03 11:24 11:23 WBC RBC Hgb Hct MCV MCH MCHC RDW Plt Count MPV Sodium Potassium Chloride
== END 2020-06-01 13:31 ==
LOC: ANHED 13:44 → ANH2MED 18:49
PROVIDERS: Admitting Provider Internal Medicine; Emergency Provider General Practice; PCP Physician Assistant; Visit Provider Family Medicine
DX: R41.82 Altered mental status, unspecified (principal); R77.8 Other specified abnormalities of plasma proteins; F03.91 Unspecified dementia, unspecified severity, with behavioral disturbance; I11.0 Hypertensive heart disease with heart failure; I50.30 Unspecified diastolic (congestive) heart failure; I25.10 Atherosclerotic heart disease of native coronary artery without angina pectoris; Z86.73 Personal history of transient ischemic attack (TIA), and cerebral infarction without residual deficits; F41.8 Other specified anxiety disorders; E03.9 Hypothyroidism, unspecified; M19.90 Unspecified osteoarthritis, unspecified site; Z86.11 Personal history of tuberculosis; Z79.01 Long term (current) use of anticoagulants; Z79.899 Other long term (current) drug therapy
CPT/HCPCS: 36415; 36600; 51701; 70450; 70553; 71045; 72125; 80048; 80053; 80307; 81001; 82140; 82550; 82805; 82948; 83735; 84443; 84484; 85025; 85027; 85610; 85730; 93005; 96374; 99285; A9270; A9577; G0378; J2060

== ENCOUNTER 2020-11-05 05:31 | Observation (INO) | payer MEDICARE, SELFPAY ==
[2020-11-05] VITALS (19 sets, daily range): BP systolic 101–199; BP diastolic 49–94; PULSE 54–117; RESP 12–23; TEMP 35.9–36.6; O2SAT 90–100; BMI 26.1
--- NOTE | ~2020-11-05 | CT_ITS ---
EXAMINATION: CT abdomen pelvis wo con DATE: 11/05/2020 16:20 INDICATION: Pancytopenia. TECHNIQUE: Computed tomography (CT) of the abdomen and pelvis was performed without intravenous contr ast. Automated exposure control and iterative reconstruction technique were employed. The dose-length product was 439.22 mGy-cm. COMPARISON: Chest CT 05/16/2020 FINDINGS: The visualized portions of the lung bases demonstrate calcified pleural plaques on the left and mild left-sided atelectasis. No pleural effusion. Cardiomegaly is noted. There are coronary tucker ry calcifications. No pericardial effusion. There is a small sliding hiatal hernia. The liver, spleen , pancreas, adrenal glands, and kidneys are normal. There is no urolithiasis. There is a 5.1 cm calci fied uterine fibroid. There is diverticulosis of the colon without evidence of diverticulitis. The ap pendix is normal. There are no dilated loops of bowel. There are no pathologically enlarged lymph nod es. There is no free intraperitoneal fluid. There is a bipolar left hip hemiarthroplasty. There is th oracolumbar dextrocurvature and severe spondylosis. IMPRESSION: 1. Small sliding hiatal hernia. Reviewed, dictated and finalized at location A.
--- NOTE | ~2020-11-05 | CT_ITS ---
EXAMINATION: CT brain wo con DATE: 11/05/2020 06:06 INDICATION: Altered mental status. Unresponsive. TECHNIQUE: Computed tomography (CT) of the head was performed without intravenous contrast. Sagittal and coronal reconstructions were performed. The mA was adjusted according to patient size. Iterative reconstruction technique was employed. The dose-length product was 605.33 mGy-cm. COMPARISON: head CT dated 05/31/2020 and brain MR dated 06/01/2020 FINDINGS: Unchanged moderate sized region of encephalomalacia in the left frontal lobe consistent with old infa rct. No acute intracranial hemorrhage, acute infarction or abnormal extra axial fluid collection. The re is additional mild to moderate scattered white matter hypoattenuation consistent with chronic smal l vessel ischemic disease. Ventricles are normal and symmetric. No mass/mass effect. Changes of bila teral intraocular lens replacement. The orbitsand paranasal sinuses are normal. Status post right mas toidectomy. Intracranial calcified cerebral atherosclerosis is noted. IMPRESSION: 1. Chronic moderate sized left frontal lobe infarct. No acute intracranial process. 2. Additional mild to moderate scattered white matter hypoattenuation consistent with chronic small v essel ischemic disease. Reviewed, dictated and finalized at location A. IMPRESSION: 1. Chronic moderate sized left frontal lobe infarct. No acute intracranial proc ess. 2. Additional mild to moderate scattered white matter hypoattenuation consisten t with chronic small vessel ischemic disease.
--- NOTE | ~2020-11-05 | XR_ITS ---
EXAMINATION: XR chest 1V DATE: 11/05/2020 06:11 INDICATION: Altered mental status. Unresponsive. TECHNIQUE: frontal view of the chest was obtained. COMPARISON: Chest radiograph dated 05/31/[address] dated 05/16/2020 and 05/25/2018 FINDINGS: Left-sided calcified pleural plaques most prominent along the left hemidiaphragm. Prior thoracotomy d efect in the posterior left fifth rib. Volume loss in the left upper lobe with cephalad retraction of the left hilum and chronic opacity consistent with scarring at the left apex. No new airspace opacit ies, pulmonary edema, pleural effusion or pneumothorax. Cardiomegaly. Enlargement of the central pulm onary arteries consistent with pulmonary arterial hypertension. IMPRESSION: 1. Chronic scarring with volume loss at the left apex and calcified left pleural plaques. No acute ca rdiopulmonary disease. 2. Cardiomegaly. Reviewed, dictated and finalized at location A. IMPRESSION: 1. Chronic scarring with volume loss at the left apex and calcified left pleura l plaques. No acute cardiopulmonary disease. 2. Cardiomegaly.
--- NOTE | 2020-11-05 05:41 | ECG_ITS ---
Measurements Intervals [place] Rate: 54 P: 92 IL: 207 QRS: 91 QRSD: 98 T: 76 QT: 418 QTc: 399 Interpretive Statements SINUS BRADYCARDIA RIGHT AXIS DEVIATION BORDERLINE ECG Electronically Signed On 11-05-2020 6:08:16 CDT by Yovanny Elliott D.O.
[2020-11-05 05:59] LABS: Basophils Percent Auto 0.8 % (0.2-1.2); Eosinophils Absolute Auto 0.2 K/mm3 (0-0.3); Hematocrit 22.9 % (37.0-47.0); Immature Granulocyte Absolute 0.01 K/mm3 (0.00-0.031); Immature Granulocyte Percent A 0.3 % (0-0.5); Lymphocytes Absolute Auto 1.98 K/mm3 (0.9-3.2); Mean Corpuscular HGB Conc 30.6 g/dl (32-36); Mean Corpuscular Hemoglobin 28.9 pg (26-34); Mean Corpuscular Volume 94.6 fl (80-100); Mean Platelet Volume 10.2 fl (7.4-10.4); Monocytes Absolute Auto 0.4 K/mm3 (0.1-0.6); Monocytes Percent Auto 9.8 % (2.6-8.5); Neutrophils Absolute Auto 1.4 K/mm3 (1.3-6.7); Neutrophils Percent Auto 35.1 % (45.5-73.1); Platelet Count Result 104 k/mm3 (150-375); Red Blood Count 2.42 M/mm3 (4.2-5.4); Red Cell Distribution Width 13.4 % (11.5-14.5)
[2020-11-05 06:04] LABS: Add Urine Microscopic? YES; Appearance Urine Clear (Clear); Bacteria Urine Trace /hpf; Bilirubin Urine Negative (Negative); Color Urine Yellow (Yellow); Glucose Urine UA Negative (Negative); Ketones Urine Negative (Negative); Leukocyte Esterase Ur 1+ LEU/UL (Negative); Mucus Urine Rare /lpf; Nitrate Urine Positive (Negative); Protein Urine Negative (Negative); Specific Grav Ur 1.012 (1.001-1.035); Squamous Epithelial Cell Urine Rare /hpf (Few); Urobilinogen Urine Negative mg/dL (<2.0); WBC Urine 21-30 /hpf
[2020-11-05 06:06] LABS: Blood Urine Negative (Negative)
[2020-11-05 06:08] LABS: INR 1.6; Prothrombin Time 19.3 Seconds (11.1-14.7)
[2020-11-05 06:09] LABS: Alanine Aminotransferase 10 U/L (4-35); Albumin Level 3.6 g/dL (3.5-5.1); Alkaline Phosphatase 92 U/L (38-126); Anion Gap 5 mmol/L (8-16); Aspartate Amino Transferase 24 U/L (14-36); Bilirubin,Total 0.4 mg/dL (0.2-1.3); Blood Urea Nitrogen 17 mg/dL (7-17); Calcium 9.2 mg/dL (8.4-10.2); Carbon Dioxide 30 mmol/L (22-30); Chloride 106 mmol/L (98-107); Estimated Glomerular Filt Rate 53; Glucose 94 mg/dL (65-105); Partial Thromboplastin Time 33.7 SECONDS (22.3-36.8); Potassium 3.7 mmol/L (3.4-5.0); Sodium 141 mmol/L (137-145)
[2020-11-05 06:14] LABS: Amphetamine Screen Urine Negative (Negative); Barbiturate Screen Urine Negative (Negative); Benzodiazepines Screen Urine Negative (Negative); Cannabinoid Screen Urine Negative (Negative); Cocaine Screen Urine Negative (Negative); Methadone Screen Urine Negative (Negative); Opiate Screen Urine Negative (Negative); Phencyclidine Screen Urine Negative (Negative)
[2020-11-05 06:19] LABS: Troponin I < 0.012 ng/mL (0.000-0.034)
--- NOTE | 2020-11-05 06:37 | PC.NURSE ---
pt now responsive to painful stimuli, by furrowing brow and saying Owww! when sternal rub applied. eyes remain closed. no other vocalization.
[2020-11-05 07:03] LABS: D Dimer 0.27 ug/mL (<0.48)
--- NOTE | 2020-11-05 07:17 | ED.AMS ---
HPI - Altered Mental Status General Chief Complaint: Altered Mental Status Stated Complaint: unresponsive Time Seen by Provider: 11/05/20 07:10 Source: family and EMS Mode of arrival: EMS Limitations: altered mental status and dementia History of Present Illness HPI narrative: Patient is an 85-year-old female brought in by EMS due to altered mental status. called EMS due to decreased responsiveness according to EMS. Unable to get any history from the patient due to her altered mental status. Patient has a history of dementia. Related Data Home Medications Medication Instructions Recorded Confirmed isosorbide mononitrate 30 mg PO DAILY 05/16/20 05/31/20 memantine 10 mg PO BID 05/16/20 05/31/20 sertraline 50 mg PO HS 05/16/20 05/31/20 Eliquis 5 mg PO BID 05/31/20 05/31/20 omeprazole 20 mg PO DAILY 05/31/20 05/31/20 Allergies Allergy/AdvReac Type Severity Reaction Status Date / Time No Known Allergies Allergy Verified 05/31/20 18:48 Review of Systems Review of Systems: All systems reviewed & are unremarkable except as noted in HPI and below ROS unobtainable: Yes unobtainable due to medical condition and unobtainable due to mental status PMFSH Past Medical History Medical History Anticoagulant long-term use Carotid artery disease Cerebrovascular accident 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 Congestive heart failure Grade 2 diastolic dysfunction noted on echocardiogram in June 2018. Ejection fraction at that time was visually estimated at 70%. Dementia Depression with anxiety History of coronary vasospasm History of tuberculosis Hypertension Hypothyroidism Osteoarthritis Surgical History Surgical History History of bilateral cataract extraction History of carotid endarterectomy History of right knee joint replacement History of thoracotomy At age 16 with what sounds like wedge resection related to tuberculosis. Family History Family History Father Tuberculosis Social History Social History Social History: The patient recently moved into memory care at [facility]. Prior to that she was living in [place] with her . The She is a lifelong nonsmoker. No alcohol or illicit substance the use. Her son Tylor is power of civil attorney. She is listed as a do not resuscitate. Smoking status: Never smoker Alcohol intake: never Substance use: never Substance use type: does not use Spiritual care concerns: No Exam Const: General: healthy appearing Other: Lethargic HENMT: Head: normal to inspection, normocephalic and atraumatic Ears: hearing grossly normal bilaterally, TM normal on the right and TM normal on the left General nose exam: Normal external nose present, Normal nares present and No nasal discharge present Face and sinus: normal facial exam Mouth: Yes Normal oral and palatal mucosa present, Yes lip normal, Yes tongue normal and Yes oropharynx normal Throat: posterior oropharynx normal, tonsils normal and uvula midline Eyes: General: appearance normal, both eyes and all related structures Pupils: Equal, round and reactive pupils present EOM: EOMs intact bilaterally Neck: Neck: normal visual inspection, full ROM, no lymphadenopathy and no meningeal signs Chest: Chest palpation & inspection: normal inspection of the chest Resp: Effort & Inspection: normal respiratory effort, able to speak in complete sentences, no respiratory distress and not tachypneic Auscultation: clear to auscultation bilaterally, no crackles, no rales, no rhonchi and no wheezes Cardio: Rate: regular rate Rhythm: regular rhythm GI: Inspection: normal to inspection GI Palp: No abdominal tenderness, Yes Soft to palpation, No Tenderness t
[2020-11-05] MEDS: TUBING, BLOOD PLUM PUMP TUBING 1 EACH XX (11:28)
[2020-11-05] MEDS: SODIUM CHLORIDE 0.9% IV 250 ML 30 ML IV CONT (11:28)
[2020-11-05] MEDS: ACETAMINOPHEN 325 MG TABLET 650 MG PO (11:33)
--- NOTE | 2020-11-05 12:27 | PC.NURSE ---
This patient, Judy Pastor, was admitted to [address] [place] [address] Room 305-02 on 11/05/20 @ 1205. Patient/family oriented to hospital policies and general routines including ID bracelet, bed and alarms, visiting hours, pain management, procedures, bathroom and other care routines, personal items, smoking policy, room service/diet, and visiting hours. Information on how to activate the Rapid Response Team has been discussed. Patient/Family are encouraged to report perceived risks to care and to ask questions if they do not understand what they are told or what they should do.
--- NOTE | 2020-11-05 13:00 | PM.IMHP ---
H&P: HPI History of Present Illness Date/Time: 11/05/20 13:00 Chief Complaint: Altered mental status. Narrative: This is an 85-year-old female with dementia, hypertension, hypothyroidism, diastolic congestive heart failure, and history of DVTs who presented to the emergency department earlier today via EMS from home for evaluation of altered mental status. This morning her was unable to wake her from sleep and EMS was summoned. She was still unresponsive on their arrival but had stable glucose and vital signs. 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 In fact I have admitted her to the hospital before under similar circumstances. In any event she is alert and oriented at the time my evaluation and she tells me that she was just sleeping this morning. Specifically she denies headache, vertigo, syncope, near syncope, fever, chills, sweats, cold and flu symptoms, chest pain, pleuritic pain, shortness of breath, cough, nausea, vomiting, diarrhea, and dysuria. She has not noticed any significant bruising or blood loss. No recent change in medications. No recent falls or injury. Review of Systems Review of Systems: Narrative: Twelve systems were reviewed with pertinent positives and negatives as per HPI. Except as documented, all other systems were reviewed and are negative. [facility] Past Medical History Medical History Anticoagulant long-term use Carotid artery disease Cerebrovascular accident 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 Congestive heart failure Grade 2 diastolic dysfunction noted on echocardiogram in June 2018. Ejection fraction at that time was visually estimated at 70%. Dementia with behavioral disturbance Depression with anxiety History of coronary vasospasm History of tuberculosis Hypertension Hypothyroidism Osteoarthritis Surgical History Surgical History History of bilateral cataract extraction History of carotid endarterectomy History of right knee joint replacement History of thoracotomy At age 16 with what sounds like wedge resection related to tuberculosis. Family History Family History Father Tuberculosis Social History Social History Social History: The patient lives in [place] with her , Armando. She had previously been at a memory care facility. She is a lifelong nonsmoker. No alcohol or illicit substance the use. Her son, Tylor Pastor, is her healthcare power of web site manager. She is listed as a do not resuscitate. Meds Home Medications and Allergies Home Medications Medication Instructions Recorded Confirmed Type levothyroxine 150 mcg tablet 150 mcg PO DAILY #30 tablet 12/13/19 11/05/20 Rx carvedilol 25 mg tablet 12.5 mg PO Q12H #90 tablet 05/14/20 11/05/20 Rx isosorbide mononitrate 30 mg PO DAILY 05/16/20 11/05/20 History memantine 10 mg PO BID 05/16/20 11/05/20 History sertraline 50 mg PO HS 05/16/20 11/05/20 History donepezil 10 mg PO QPM #0 tablet 05/20/20 11/05/20 Rx valsartan 320 mg tablet 320 mg PO DAILY #90 tablet 07/22/20 11/05/20 Rx amlodipine 10 mg PO DAILY 11/05/20 11/05/20 History Allergies Allergy/AdvReac Type Severity Reaction Status Date / Time No Known Allergies Allergy Verified 11/05/20 12:38 Vital Signs Vital Signs - 24 hr 11/05/20 05:30 11/05/20 06:11 11/05/20 07:19 Temperature Pulse Rate 61 54 L 55 L Respiratory Rate 15 12 14 Blood Pressure 199/58 H 185/49 H 186/56 H Pulse Oximetry 95 94 94 11/05/20 08:15 11/05/20 10:01 11/05/20 10:49 Temperature Pulse Rate 61 109 H 117 H Respiratory Rate 18 12 23 H Blood Pressure 165/55 H 134/79 119/68 Pu
[2020-11-05 13:32] LABS: CRP < 0.5 mg/dL (<1.0)
[2020-11-05 13:36] LABS: Transferrin 226 mg/dL (206-381)
[2020-11-05 13:44] LABS: Lactate Dehydrogenase 404 U/L (313-618)
[2020-11-05 13:59] LABS: Iron 96 ug/dL (37-170)
[2020-11-05 14:09] LABS: Percent Iron Saturation 31 % (20-50)
[2020-11-05 14:37] LABS: Folic Acid 7.1 ng/mL (2.76->20)
[2020-11-05 14:39] LABS: Erythrocyte Sedimentation Rate 18 mm/hr (0-20)
[2020-11-05 17:16] LABS: Hematocrit 44.5 % (37.0-47.0); Hemoglobin 14.3 g/dL (12.0-15.0)
[2020-11-05 18:30] LABS: IFOB Positive Control Positive; Immunochemical Fecal Occult Bl Negative (N)
[2020-11-05] MEDS: MEMANTINE 10 MG TABLET PO (21:34)
[2020-11-05] MEDS: DONEPEZIL HCL 10 MG TABLET PO (21:35)
[2020-11-05] MEDS: SERTRALINE HCL 25 MG TABLET 50 MG PO (21:36)
[2020-11-05] MEDS: carvediloL 12.5 MG TABLET PO (21:37)
[2020-11-06 00:32] LABS: Hematocrit 42.3 % (37.0-47.0)
[2020-11-06 05:44] VITALS: BP 102/52; PULSE 66; RESP 18; TEMP 36.2; O2SAT 94
[2020-11-06 06:01] LABS: Hematocrit 45.3 % (37.0-47.0); Hemoglobin 14.7 g/dL (12.0-15.0)
[2020-11-06 06:10] LABS: Anion Gap 6 mmol/L (8-16); Blood Urea Nitrogen 21 mg/dL (7-17); Calcium 9.4 mg/dL (8.4-10.2); Carbon Dioxide 30 mmol/L (22-30); Chloride 105 mmol/L (98-107); Estimated CRCL calculation 29 ml/min; Estimated Glomerular Filt Rate 47; Glucose 97 mg/dL (65-105); Magnesium 1.9 mg/dL (1.6-2.3); Potassium 3.8 mmol/L (3.4-5.0); Sodium 141 mmol/L (137-145)
[2020-11-06] MEDS: LEVOTHYROXINE SODIUM 150 MCG TABLET PO (06:31)
[2020-11-06] MEDS: MEMANTINE 10 MG TABLET PO (09:07)
[2020-11-06] MEDS: ISOSORBIDE MONONITRATE 30 MG TAB.ER.24H PO (09:07)
[2020-11-06] MEDS: VALSARTAN 160 MG TABLET 320 MG PO (09:07)
[2020-11-06 09:08] VITALS: PULSE 72
[2020-11-06] MEDS: amLODIPine BESYLATE 5 MG TABLET 10 MG PO (09:08)
[2020-11-06] MEDS: carvediloL 12.5 MG TABLET PO (09:08)
--- NOTE | 2020-11-06 12:51 | PDONCCN ---
HPI - Date of Consult Date/Time: 11/06/20 12:51 Requesting Physician: Reena Bernstein MD Primary Care Provider: Bob Medina, PADwayne - Consult Narrative Reason for consult: Pancytopenia Narrative: Judy Pastor is a 85 year old female who has been in good health except history of dementia hypertension and hypothyroidism brought in to the hospital with altered mental status. According to the patient was unresponsive. Her labs showed pancytopenia with WBC of 4.0 hemoglobin of 7.0 and platelet of [id number]. She denies any night sweats fever chills and weight loss. She denies any musculoskeletal discomfort and abdominal pain. No bleeding and bruising. She denies any previous history of malignancy. Denies any new lung sounds are lymphadenopathy. CT abdomen and pelvis was performed due to pancytopenia that only showed a small hiatal hernia without any enlarged lymph node and splenomegaly. She is feeling better and wanted to go home today. Review of Systems - Review of Systems All systems reviewed & are unremarkable except as noted in HPI and [facility] Medical History: Medical History (Last Reviewed 11/05/20 @ 20:10 by Meg Payne PA-C) Anticoagulant long-term use Carotid artery disease Cerebrovascular accident 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 Congestive heart failure Grade 2 diastolic dysfunction noted on echocardiogram in June 2018. Ejection fraction at that time was visually estimated at 70%. Dementia with behavioral disturbance Depression with anxiety History of coronary vasospasm History of tuberculosis Hypertension Hypothyroidism Osteoarthritis Surgical History: Surgical History (Last Reviewed 11/05/20 @ 13:49 by Meg Payne PA-C) History of bilateral cataract extraction History of carotid endarterectomy History of right knee joint replacement History of thoracotomy At age 16 with what sounds like wedge resection related to tuberculosis. Family History: Family History (Last Reviewed 11/05/20 @ 13:49 by Meg Payne PA-C) Father Tuberculosis Meds Home Medications Medication Instructions Recorded Confirmed Type levothyroxine 150 mcg tablet 150 mcg PO DAILY #30 tablet 12/13/19 11/05/20 Rx carvedilol 25 mg tablet 12.5 mg PO Q12H #90 tablet 05/14/20 11/05/20 Rx isosorbide mononitrate 30 mg PO DAILY 05/16/20 11/05/20 History memantine 10 mg PO BID 05/16/20 11/05/20 History sertraline 50 mg PO HS 05/16/20 11/05/20 History donepezil 10 mg PO QPM #0 tablet 05/20/20 11/05/20 Rx valsartan 320 mg tablet 320 mg PO DAILY #90 tablet 07/22/20 11/05/20 Rx amlodipine 10 mg PO DAILY 11/05/20 11/05/20 History Allergies Allergy/AdvReac Type Severity Reaction Status Date / Time No Known Allergies Allergy Verified 11/05/20 12:38 Results - Labs CBC & Chem 7: 11/06/20 05:15 11/06/20 05:15 Labs: Short CBC 11/05/20 11/06/20 11/06/20 Range/Units 16:53 00:09 05:15 Hgb 14.3 D 14.0 14.7 (12.0-15.0) g/dL Hct 44.5 42.3 45.3 (37.0-47.0) % BMP 11/06/20 05:15 Sodium 141 Potassium 3.8 Chloride 105 Carbon Dioxide 30 BUN 21 H Creatinine 1.10 H Glucose 97 Calcium 9.4 Assessment and Plan - Additional Plan Pancytopenia. Patient is a pleasant 86-year-old female with good health except history of hypertension dementia and diastolic congestive heart failure presented with altered mental made to start this when she was found unresponsive. CT scan showed chronic moderate size left frontal lobe infarction with no acute intracranial process. Labs showed pancytopenia. She also had lymphocytosis. CT scan showed no pathologically enlarged lymph node in splenomegaly. On my examination there is no lymphadenopathy. I am concerned about underlying bone marrow disorder like myelodysplasia. Flow cytometric analysis has been ordered. Other labs showed normal iron study, normal
--- NOTE | 2020-11-06 13:16 | PM.DS ---
DS: Admitting Diagnosis Admitting Diagnosis Admitting Diagnosis: UTI DS: Discharge Diagnosis Discharge Diagnosis (1) Unresponsive episode: Code(s): R41.89 - Other symptoms and signs involving cognitive functions and awareness Status: Acute Assessment and Plan: The patient presents to the ER today after she was found unresponsive by her . I have taking care of this patient for and she has had similar episodes in the past, where she appears unresponsive however she is found to be purposefully forcing her eyes and eyes shut thus she is not truly unresponsive. At the time my evaluation she is alert and oriented x4 and tells me that she was simply sleeping this morning. (2) Abnormal urinalysis: Code(s): R82.90 - Unspecified abnormal findings in urine Status: Acute Assessment and Plan: She was given a dose of ceftriaxone in the emergency department for an abnormal UA which is positive for nitrates, leukocyte esterase, and trace bacteria. 21 to 30 white blood cells also noted on microscopy. She is currently denying symptoms of UTI. (3) Pancytopenia: Code(s): D61.818 - Other pancytopenia Status: Acute Assessment and Plan: CBC and differential are markedly different today when compared to labs done in May 2020. At this time will send peripheral smear for pathology review and obtain flow cytometry as well as CT of the abdomen and pelvis to assess the spleen and evaluate for lymphadenopathy. Anemia workup has also been ordered. Dr. Crews has been consulted and his input is appreciated. (4) Dementia with behavioral disturbance: Code(s): F03.91 - Unspecified dementia with behavioral disturbance Status: Acute Assessment and Plan: Continue donepezil and memantine. As mentioned above she does have history of behavioral disturbances including similar episodes where she does not follow commands or answer questions. Alert and oriented x4 at this time. (5) Hypertension: Code(s): I10 - Essential (primary) hypertension Status: Acute Assessment and Plan: Her blood pressures were reviewed and on arrival they were quite elevated, as high as 199/58, but that has since improved. Continue antihypertensives and monitor blood pressures closely. (6) Hypothyroidism: Code(s): E03.9 - Hypothyroidism, unspecified Status: Acute Assessment and Plan: Continue levothyroxine and check TSH. (7) Congestive heart failure: Code(s): I50.9 - Heart failure, unspecified Status: Acute Assessment and Plan: History of diastolic dysfunction. She appears clinically compensated. DS: Summary Hospital Course Hospital Course: This is an 85-year-old female with dementia, hypertension, hypothyroidism, diastolic congestive heart failure, and history of DVTs who presented to the emergency department earlier today via EMS from home for evaluation of altered mental status. Yesterday morning her was unable to wake her from sleep and EMS was summoned. She was still unresponsive on their arrival but had stable glucose and vital signs. 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 In fact I have admitted her to the hospital before under similar circumstances. In any event she is alert and oriented at the time my evaluation and she tells me that she was just sleeping this morning. Specifically she denies headache, vertigo, syncope, near syncope, fever, chills, sweats, cold and flu symptoms, chest pain, pleuritic pain, shortness of breath, cough, nausea, vomiting, diarrhea, and dysuria. She has not noticed any significant bruising or blood loss. No recent change in medications. Patient did state that she did fall out of bed and that is why she was alert confused yesterday. However today she feels a lot roxanna
[2020-11-06 13:37] LABS: Basophils Absolute Auto 0.1 K/mm3 (0.0-0.1); Basophils Percent Auto 1.1 % (0.2-1.2); Eosinophils Absolute Auto 0.1 K/mm3 (0-0.3); Hematocrit 47.3 % (37.0-47.0); Hemoglobin 15.3 g/dL (12.0-15.0); Immature Granulocyte Absolute 0.02 K/mm3 (0.00-0.031); Immature Granulocyte Percent A 0.3 % (0-0.5); Lymphocytes Absolute Auto 2.47 K/mm3 (0.9-3.2); Lymphocytes Percent Auto 38.1 % (18.3-44.2); Mean Corpuscular HGB Conc 32.3 g/dl (32-36); Mean Corpuscular Hemoglobin 29.4 pg (26-34); Mean Corpuscular Volume 90.8 fl (80-100); Mean Platelet Volume 11.4 fl (7.4-10.4); Monocytes Absolute Auto 0.5 K/mm3 (0.1-0.6); Monocytes Percent Auto 7.9 % (2.6-8.5); Neutrophils Absolute Auto 3.3 K/mm3 (1.3-6.7); Neutrophils Percent Auto 50.6 % (45.5-73.1); Nucleated Red Blood Cells Perc 0.3 % (0.0-0.2); Platelet Count Result 193 k/mm3 (150-375); Red Blood Count 5.21 M/mm3 (4.2-5.4); Red Cell Distribution Width 13.8 % (11.5-14.5); White Blood Count 6.5 K/mm3 (4.5-10.0)
[2020-11-07 22:50] LABS: Haptoglobin 157 mg/dL (43-212)
== END 2020-11-06 14:20 | disposition home or self-care (01) ==
LOC: ANHED 10:44 → ANH3MEDSUR 11-06 13:37
PROVIDERS: Emergency Medicine; Nurse Practitioner; Physician Assistant; Admitting Provider Family Medicine; Emergency Provider Emergency Medicine; PCP Physician Assistant; Visit Provider Internal Medicine
DX: R41.82 Altered mental status, unspecified (principal); I11.0 Hypertensive heart disease with heart failure; I50.30 Unspecified diastolic (congestive) heart failure; E03.9 Hypothyroidism, unspecified; Z86.718 Personal history of other venous thrombosis and embolism; R82.90 Unspecified abnormal findings in urine; D61.818 Other pancytopenia; F03.91 Unspecified dementia, unspecified severity, with behavioral disturbance; Z79.899 Other long term (current) drug therapy
CPT/HCPCS: 36415; 36430; 51701; 70450; 71045; 74176; 80048; 80053; 80307; 81001; 82274; 82607; 82728; 82746; 83010; 83540; 83550; 83615; 83735; 84443; 84466; 84484; 85014; 85018; 85025; 85380; 85610; 85652; 85730; 86140; 86850; 86900; 86901; 86923; 87077; 87086; 87088; 87186; 88184; 93005; 96365; 96376; 99285; A9270; G0378; J0696; J7050; P9016

== ENCOUNTER 2022-12-16 11:33 | Emergency (ER) | payer MEDICARE, SELFPAY ==
[2022-12-16] VITALS (39 sets, daily range): BP systolic 97–168; BP diastolic 40–69; PULSE 63–84; RESP 12–25; TEMP 36.6; O2SAT 90–98
--- NOTE | ~2022-12-16 | XR_ITS ---
EXAMINATION: XR chest 1V portable DATE: 12/16/2022 13:12 INDICATION: Near syncope TECHNIQUE: frontal view of the chest was obtained. COMPARISON: Chest radiograph dated 11/05/2020 FINDINGS: Stable postoperative change of prior left partial pneumonectomy with left fifth rib thoracotomy defec t, volume loss in the left hemithorax, cephalad retraction of the left hilum and chronic opacificatio n at the left apex. Unilateral calcified left pleural plaques likely related to prior exudative effus ion. Mild bronchial wall thickening the bilateral perihilar regions and lower lung zones. No pleural effusion or pneumothorax. Mild cardiomegaly. Severe osteoarthritis at the right glenohumeral joint. IMPRESSION: 1. Stable appearance of postoperative change of prior partial left pneumonectomy. 2. Mild bronchial wall thickening the bilateral perihilar regions and lower lung zones which could be due to bronchitis, reactive airway disease/asthma or mild pulmonary edema. 3. Cardiomegaly. Reviewed, dictated and finalized at [facility]. IMPRESSION: 1. Stable appearance of postoperative change of prior partial left pneumonectom y. 2. Mild bronchial wall thickening the bilateral perihilar regions and lower german g zones which could be due to bronchitis, reactive airway disease/asthma or mil d pulmonary edema. 3. Cardiomegaly.
--- NOTE | 2022-12-16 11:38 | ECG_ITS ---
Measurements Intervals [place] Rate: 65 P: 91 DC: 216 QRS: 85 QRSD: 94 T: 70 QT: 400 QTc: 417 Interpretive Statements SINUS RHYTHM WITH FIRST DEGREE AV BLOCK ATRIAL PREMATURE COMPLEX BORDERLINE T WAVE ABNORMALITY- HIGH LATERAL LEADS BASELINE ARTIFACT- I, II, III, AVR, AVL, AVF, V1 BORDERLINE ECG COMPARED TO ECG 11/05/2020 05:35:54 SINUS RHYTHM NOW PRESENT FIRST DEGREE AV BLOCK NOW PRESENT Electronically Signed On 12-16-2022 11:58:50 CDT by Yovanny Elliott D.O.
[2022-12-16 12:09] LABS: Basophils Absolute Auto 0.1 K/mm3 (0.0-0.1); Basophils Percent Auto 0.9 % (0.2-1.2); Eosinophils Absolute Auto 0.2 K/mm3 (0-0.3); Eosinophils Percent Auto 2.5 % (0-4.4); Hematocrit 39.1 % (37.0-47.0); Hemoglobin 12.4 g/dL (12.0-15.0); Immature Granulocyte Absolute 0.01 K/mm3 (0.00-0.031); Immature Granulocyte Percent A 0.2 % (0-0.5); Lymphocytes Absolute Auto 1.57 K/mm3 (0.9-3.2); Lymphocytes Percent Auto 24.2 % (18.3-44.2); Mean Corpuscular HGB Conc 31.7 g/dl (32-36); Mean Corpuscular Hemoglobin 29.5 pg (26-34); Mean Corpuscular Volume 92.9 fl (80-100); Mean Platelet Volume 10.5 fl (7.4-10.4); Monocytes Absolute Auto 0.5 K/mm3 (0.1-0.6); Monocytes Percent Auto 7.4 % (2.6-8.5); Neutrophils Absolute Auto 4.2 K/mm3 (1.3-6.7); Neutrophils Percent Auto 64.8 % (45.5-73.1); Platelet Count Result 177 k/mm3 (150-375); Red Blood Count 4.21 M/mm3 (4.2-5.4); Red Cell Distribution Width 13.6 % (11.5-14.5); White Blood Count 6.5 K/mm3 (4.5-10.0)
[2022-12-16 12:16] LABS: Alanine Aminotransferase 21 U/L (6-35); Albumin Level 3.5 g/dL (3.5-5.1); Alkaline Phosphatase 57 U/L (38-126); Anion Gap 3 mmol/L (8-16); Aspartate Amino Transferase 27 U/L (14-36); Bilirubin,Total 0.5 mg/dL (0.2-1.3); Blood Urea Nitrogen 26 mg/dL (7-17); Calcium 8.5 mg/dL (8.4-10.2); Carbon Dioxide 28 mmol/L (22-30); Chloride 105 mmol/L (98-107); Estimated CRCL calculation 23 ml/min; Estimated Glomerular Filt Rate 33; Glucose 129 mg/dL (65-110); Potassium 3.7 mmol/L (3.4-5.0); Sodium 136 mmol/L (137-145)
--- NOTE | 2022-12-16 12:50 | ED.DIZZY ---
HPI - Dizziness General Chief Complaint: Dizziness Stated Complaint: dizziness Time Seen by Provider: 12/16/22 11:58 History of Present Illness HPI Narrative: Patient is an 87-year-old female with a history of dementia, hypertension, hypothyroidism presenting with lightheadedness. Patient's family is at bedside and helps with history. Patient states that she struggles with chronic diarrhea which has been worse over the last couple of days. Today she had a near syncopal episode and felt too lightheaded to get up to go to bed so her family brought her in for evaluation. She denies any pain. No chest pain, shortness of breath, abdominal pain. No numbness or focal weakness. Patient's son states that she does not drink enough water. Currently, she denies complaints. Related Data Home Medications Medication Instructions Recorded Confirmed isosorbide mononitrate 30 mg 30 mg PO DAILY 05/16/20 11/05/20 tablet,extended release 24 hr memantine 10 mg tablet 10 mg PO BID 05/16/20 11/05/20 sertraline 25 mg tablet 50 mg PO HS 05/16/20 11/05/20 amlodipine 10 mg tablet 10 mg PO DAILY 11/05/20 11/05/20 Allergies Allergy/AdvReac Type Severity Reaction Status Date / Time No Known Allergies Allergy Verified 12/18/22 07:51 Review of Systems Review of Systems: All systems reviewed & are unremarkable except as noted in HPI and below PMFSH Past Medical History Medical History Anticoagulant long-term use Carotid artery disease Cerebrovascular accident 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 Congestive heart failure Grade 2 diastolic dysfunction noted on echocardiogram in June 2018. Ejection fraction at that time was visually estimated at 70%. Dementia with behavioral disturbance Depression with anxiety History of coronary vasospasm History of tuberculosis Hypertension Hypothyroidism Osteoarthritis Surgical History Surgical History History of bilateral cataract extraction History of carotid endarterectomy History of right knee joint replacement History of thoracotomy At age 16 with what sounds like wedge resection related to tuberculosis. Family History Family History Father Tuberculosis Social History Social History Social History: The patient lives in [place] with her , Armando. She had previously been at a memory care facility. She is a lifelong nonsmoker. No alcohol or illicit substance the use. Her son, Tylor Pastor, is her healthcare power of corporate associate attorney. She is listed as a do not resuscitate. Exam Narrative: GENERAL: Well-appearing, well-nourished, and in no acute distress. Pleasant and cooperative HEAD: Normocephalic, atraumatic. EYES: PERRLA and EOMI. ENT: Nares clear, no rhinorrhea or epistaxis. Mucous membranes dry NECK: Supple. CHEST: Clear to auscultation. No respiratory distress. HEART: Regular rate and rhythm. Normal peripheral pulses. ABDOMEN: Soft, nontender, nondistended EXTREMITIES: Normal range of motion. No edema. SKIN: Warm, dry, no rash. NEURO: No focal deficits. Alert and oriented x2, which is baseline. PSYCH: Normal mood and affect. Course Vital Signs Vital signs: Vital Signs Pulse Rate 69 12/16/22 11:31 Respiratory Rate 18 12/16/22 11:31 Temperature 97.9 F 12/16/22 12:00 Pulse Rate 63 12/16/22 17:47 Respiratory Rate 14 12/16/22 17:47 Blood Pressure 142/52 H 12/16/22 17:47 Pulse Oximetry 95 12/16/22 17:24 MDM - Dizziness MDM Narrative Medical decision making narrative: Patient is an 87-year-old female presenting with lightheadedness. Pressures are a bit soft on arrival, vitals are otherwise within normal limits. Exam remarkable for the above. EKG per my interpretat
[2022-12-16] MEDS: LACTATED RINGERS 1,000 ML 999 ML IV CONT ×2 (13:37→16:30)
[2022-12-16 13:40] LABS: Lipase 118 U/L (23-300)
[2022-12-16 13:42] LABS: Lactic Acid Reflex 2.2 mmol/L (0.7-2.0)
[2022-12-16 13:53] LABS: Troponin I < 0.012 ng/mL (0.000-0.034)
[2022-12-16 14:50] LABS: Appearance Urine Clear (Clear); Bilirubin Urine Negative (Negative); Blood Urine Negative (Negative); Color Urine Yellow (Yellow); Glucose Urine UA Negative (Negative); Ketones Urine Negative (Negative); Leukocyte Esterase Ur Negative LEU/UL (Negative); Nitrate Urine Negative (Negative); Protein Urine Negative (Negative); Urobilinogen Urine 0.2 mg/dL (<2.0); pH Urine 5.5 (5.0-9.0)
[2022-12-16 15:03] LABS: Add Urine Microscopic? NO
[2022-12-16 16:28] LABS: Reflex Lactic Acid Yes or No Add Lactic
[2022-12-16 16:41] LABS: Troponin I < 0.012 ng/mL (0.000-0.034)
== END 2022-12-16 17:59 | disposition home or self-care (01) ==
PROVIDERS: Emergency Medicine; Emergency Provider Emergency Medicine; PCP Physician Assistant
DX: E86.0 Dehydration (principal); R42 Dizziness and giddiness; F03.90 Unspecified dementia, unspecified severity, without behavioral disturbance, psychotic disturbance, mood disturbance, and anxiety; E03.9 Hypothyroidism, unspecified; I25.10 Atherosclerotic heart disease of native coronary artery without angina pectoris; I11.0 Hypertensive heart disease with heart failure; I50.9 Heart failure, unspecified; Z86.73 Personal history of transient ischemic attack (TIA), and cerebral infarction without residual deficits
CPT/HCPCS: 36415; 71045; 80053; 81003; 83605; 83690; 83735; 84484; 85025; 93005; 96360; 96361; 99284; J7120

== ENCOUNTER 2022-12-18 07:39 | Emergency (ER) | payer MEDICARE, SELFPAY ==
[2022-12-18] VITALS (7 sets, daily range): BP systolic 119–195; BP diastolic 63–116; PULSE 69–95; RESP 18–23; TEMP 36.4; O2SAT 97–99
--- NOTE | ~2022-12-18 | CT_ITS ---
EXAMINATION: CT brain wo con DATE: 12/18/2022 08:43 INDICATION: Fall, head injury. Struck right temporal region on nightstand. Loss of consciousness. TECHNIQUE: Computed tomography (CT) of the head was performed without intravenous contrast. The mA wa s adjusted according to patient size. Iterative reconstruction technique was employed. Exam dose: 90 8.00 mGy-cm total exam DLP. COMPARISON: 11/05/2020 CT brain FINDINGS: Prominent bilateral vertebral artery and carotid siphon internal carotid artery calcificati ons and additional basilar artery calcification. There is nonspecific diminished attenuation of the cerebral white matter, likely due to chronic small vessel ischemic change. Chronic left frontal lobe encephalomalacia likely due to old cerebrovascular infarct. No intracranial mass lesion or hemorrhage, midline shift or mass effect effect or recent cerebrovascu lar accident is evident. No midline shift or mass effect. No subdural or epidural hematoma. Bilateral ocular lens replacements. No fracture or bone destruction of the cranial vault is detected. Bilateral hyperostosis frontalis in terna, not likely of clinical significance. Status post right mastoidectomy. IMPRESSION: Cerebral atherosclerosis and chronic small vessel ischemic changes of the cerebral white matter Chronic left frontal cerebrovascular accident No acute intracranial finding or significant change since 11/05/2020 Reviewed, dictated and finalized at [facility]. Reviewed, dictated and finalized at [facility].
--- NOTE | ~2022-12-18 | XR_ITS ---
XR knee LT 3V DATE: 12/18/2022 08:48 INDICATION: Left knee injury, pain TECHNIQUE: 3 views including crosstable lateral COMPARISON: None FINDINGS: There is moderate tricompartment osteoarthritis, most prominent at the medial compartment. No fracture or dislocation or joint effusion is evident. No periosteal reaction or bone destruction. No radiopaque intra-articular loose body or chondrocalcinosis is noted. Arterial calcifications are n oted. IMPRESSION: Moderate tricompartment osteoarthritis Reviewed, dictated and finalized at [facility].
--- NOTE | 2022-12-18 07:53 | ECG_ITS ---
Measurements Intervals [place] Rate: 70 P: 89 HI: 181 QRS: 95 QRSD: 97 T: 74 QT: 399 QTc: 431 Interpretive Statements SINUS RHYTHM RIGHT AXIS DEVIATION BASELINE ARTIFACT- I, II, III, AVR, AVL, AVF, V1 BORDERLINE ECG COMPARED TO ECG 12/16/2022 11:42:29 NO SIGNIFICANT CHANGES Electronically Signed On 12-18-2022 7:55:35 CDT by Yovanny Elliott D.O.
--- NOTE | 2022-12-18 07:55 | ED.FALL ---
HPI - Fall General Chief Complaint: Fall Stated Complaint: fall/ +loc Time Seen by Provider: 12/18/22 07:41 History of Present Illness HPI Narrative: Patient is an 87-year-old female with history of dementia who presents ER after falling out of bed. She reported that she struck the ground and lost consciousness. Potentially for a few minutes. Patient is awake and alert. She is oriented to self and place. She cannot provide a history. She is quite pleasant and laughing and interacting. She moves all extremities well but reports pain in the left knee. She is on no blood thinning medications. History obtained from EMS. Related Data Home Medications Medication Instructions Recorded Confirmed isosorbide mononitrate 30 mg 30 mg PO DAILY 05/16/20 11/05/20 tablet,extended release 24 hr memantine 10 mg tablet 10 mg PO BID 05/16/20 11/05/20 sertraline 25 mg tablet 50 mg PO HS 05/16/20 11/05/20 amlodipine 10 mg tablet 10 mg PO DAILY 11/05/20 11/05/20 Allergies Allergy/AdvReac Type Severity Reaction Status Date / Time No Known Allergies Allergy Verified 12/18/22 07:51 Review of Systems Review of Systems: ROS unobtainable: Yes unobtainable due to mental status PMFSH Past Medical History Medical History Anticoagulant long-term use Carotid artery disease Cerebrovascular accident 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 Congestive heart failure Grade 2 diastolic dysfunction noted on echocardiogram in June 2018. Ejection fraction at that time was visually estimated at 70%. Dementia with behavioral disturbance Depression with anxiety History of coronary vasospasm History of tuberculosis Hypertension Hypothyroidism Osteoarthritis Surgical History Surgical History History of bilateral cataract extraction History of carotid endarterectomy History of right knee joint replacement History of thoracotomy At age 16 with what sounds like wedge resection related to tuberculosis. Family History Family History Father Tuberculosis Social History Social History Social History: The patient lives in [place] with her , Armando. She had previously been at a memory care facility. She is a lifelong nonsmoker. No alcohol or illicit substance the use. Her son, Tylor Pastor, is her healthcare power of attorney recruiter. She is listed as a do not resuscitate. Exam Narrative: GENERAL: Well-appearing, well-nourished, and in no acute distress. HEAD: Normocephalic, bruising/swelling right temporal region. EYES: PERRLA and EOMI. ENT: Mucous membranes moist. NECK: Supple. CHEST: Clear to auscultation. No respiratory distress. HEART: Regular rate and rhythm. Normal peripheral pulses. ABDOMEN: Soft, nontender, nondistended. EXTREMITIES: Normal range of motion. No edema. Tenderness medial joint line left knee. SKIN: Warm, dry, no rash. NEURO: Alert and oriented x2. PSYCH: Normal mood and affect. Course Course Emergency Course: Patient's family is present. Patient resting comfortably and vigorous. Patient be discharged with some oral antibiotic. Lab work and imaging otherwise unremarkable. Vital Signs Vital signs: Vital Signs Temperature 97.6 F 12/18/22 07:40 Pulse Rate 70 12/18/22 07:40 Respiratory Rate 18 12/18/22 07:40 Blood Pressure 129/116 H 12/18/22 07:40 Pulse Oximetry 98 12/18/22 07:40 Temperature 97.6 F 12/18/22 07:40 Pulse Rate 70 12/18/22 10:12 Respiratory Rate 23 H 12/18/22 10:12 Blood Pressure 155/66 H 12/18/22 10:12 Pulse Oximetry 97 12/18/22 10:12 MDM - Fall Lab Data 12/18/22 08:07 12/18/22 08:07 Labs: Lab Results 12/18/22 12/18/22 Range/Units 08:07 08:16
[2022-12-18 08:24] LABS: Basophils Absolute Auto 0.1 K/mm3 (0.0-0.1); Basophils Percent Auto 0.8 % (0.2-1.2); Eosinophils Absolute Auto 0.2 K/mm3 (0-0.3); Eosinophils Percent Auto 2.5 % (0-4.4); Hemoglobin 14.6 g/dL (12.0-15.0); Immature Granulocyte Absolute 0.01 K/mm3 (0.00-0.031); Immature Granulocyte Percent A 0.1 % (0-0.5); Lymphocytes Absolute Auto 1.93 K/mm3 (0.9-3.2); Lymphocytes Percent Auto 26.7 % (18.3-44.2); Mean Corpuscular HGB Conc 32.4 g/dl (32-36); Mean Corpuscular Hemoglobin 29.1 pg (26-34); Mean Corpuscular Volume 89.8 fl (80-100); Mean Platelet Volume 10.5 fl (7.4-10.4); Monocytes Absolute Auto 0.6 K/mm3 (0.1-0.6); Monocytes Percent Auto 7.7 % (2.6-8.5); Neutrophils Absolute Auto 4.5 K/mm3 (1.3-6.7); Neutrophils Percent Auto 62.2 % (45.5-73.1); Platelet Count Result 184 k/mm3 (150-375); Red Blood Count 5.01 M/mm3 (4.2-5.4); Red Cell Distribution Width 13.2 % (11.5-14.5); White Blood Count 7.2 K/mm3 (4.5-10.0)
[2022-12-18 08:30] LABS: Appearance Urine Clear (Clear); Bacteria Urine 4+ /hpf; Bilirubin Urine Negative (Negative); Blood Urine Negative (Negative); Color Urine Yellow (Yellow); Glucose Urine UA Negative (Negative); Ketones Urine Trace mg/dL (Negative); Leukocyte Esterase Ur 1+ LEU/UL (Negative); Nitrate Urine Positive (Negative); Non Pathogenic Casts 0-2; Protein Urine Negative (Negative); RBC Urine 0-2 /hpf (0-2); Specific Grav Ur 1.007 (1.001-1.035); Squamous Epithelial Cell Urine None seen /hpf (Few); Urobilinogen Urine 0.2 mg/dL (<2.0); pH Urine 6.5 (5.0-9.0)
[2022-12-18 08:39] LABS: Add Urine Microscopic? YES
[2022-12-18 08:40] LABS: Alanine Aminotransferase 21 U/L (6-35); Albumin Level 4.3 g/dL (3.5-5.1); Alkaline Phosphatase 88 U/L (38-126); Anion Gap 7 mmol/L (8-16); Aspartate Amino Transferase 34 U/L (14-36); Bilirubin,Total 0.9 mg/dL (0.2-1.3); Blood Urea Nitrogen 13 mg/dL (7-17); Calcium 9.2 mg/dL (8.4-10.2); Carbon Dioxide 32 mmol/L (22-30); Chloride 104 mmol/L (98-107); Estimated Glomerular Filt Rate 59; Glucose 105 mg/dL (65-110); Sodium 143 mmol/L (137-145)
== END 2022-12-18 11:05 | disposition home or self-care (01) ==
PROVIDERS: Emergency Provider Emergency Medicine; PCP Physician Assistant
DX: N39.0 Urinary tract infection, site not specified (principal); I11.0 Hypertensive heart disease with heart failure; I50.9 Heart failure, unspecified; F03.90 Unspecified dementia, unspecified severity, without behavioral disturbance, psychotic disturbance, mood disturbance, and anxiety; W06.XXXA Fall from bed, initial encounter
CPT/HCPCS: 36415; 70450; 73562; 80053; 81001; 85025; 87077; 87086; 87186; 93005; 99284

== ENCOUNTER 2022-12-25 17:56 | Observation (INO) | payer MEDICARE, SELFPAY ==
[2022-12-25] VITALS (12 sets, daily range): BP systolic 139–182; BP diastolic 55–66; PULSE 63–73; RESP 10–20; TEMP 35.9–36.6; O2SAT 93–97; BMI 24.0
--- NOTE | ~2022-12-25 | XR_ITS ---
EXAMINATION: XR chest 2V Exam Date/Time: 12/25/2022 19:12 CDT HISTORY: Weakness Comparison: 12/16/2022. RESULT: Lines, tubes, and devices: None. Lungs and pleura: Senescent changes. Volume loss with left apical capping, stable. Bibasilar atelect asis and scar. Left pleural calcification. Stable mild peribronchial cuffing. Cardiomediastinal silhouette: Stable. Other: No acute osseous or upper abdominal finding. Left fifth rib thoracotomy defect. IMPRESSION: No acute cardiopulmonary process. Stable findings of chronic bronchiolitis. Reviewed, dictated and finalized at location [facility].
--- NOTE | 2022-12-25 18:39 | ECG_ITS ---
Rate CO QRSd QT QTc P QRS T Severity 69 207 94 401 430 93 79 71 Normal ECG SINUS RHYTHM BASELINE ARTIFACT- I, II, AVR, AVL, AVF NORMAL ECG COMPARED TO ECG 12/18/2022 07:47:15 NO SIGNIFICANT CHANGES Electronically Signed On 12-27-2022 8:39:16 CDT by Yovanny PENA
--- NOTE | 2022-12-25 18:41 | ED.GENADULT ---
HPI - General Adult General Chief complaint: Weakness Stated complaint: altered loc Time Seen by Provider: 12/25/22 18:24 History of Present Illness HPI narrative: 87F dementia brought in by family for weakness. Per family, patient has been complaining of whole body weakness, not wanting to move. Patient was seen one week ago for a mechanical fall with head strike. Family also reports that patient recently finished a course of antibiotics for UTI. Denied chest pain, shortness of breath, abdominal pain, dysuria, diarrhea, sick contacts, cough. Family reporting patient not eating for several days. Related Data Home Medications Medication Instructions Recorded Confirmed isosorbide mononitrate 30 mg 30 mg PO DAILY 05/16/20 11/05/20 tablet,extended release 24 hr memantine 10 mg tablet 10 mg PO BID 05/16/20 11/05/20 sertraline 25 mg tablet 50 mg PO HS 05/16/20 11/05/20 amlodipine 10 mg tablet 10 mg PO DAILY 11/05/20 11/05/20 Allergies Allergy/AdvReac Type Severity Reaction Status Date / Time No Known Allergies Allergy Verified 12/25/22 18:15 Review of Systems Review of Systems: See HPI [facility] Past Medical History Medical History Anticoagulant long-term use Carotid artery disease Cerebrovascular accident 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 Congestive heart failure Grade 2 diastolic dysfunction noted on echocardiogram in June 2018. Ejection fraction at that time was visually estimated at 70%. Dementia with behavioral disturbance Depression with anxiety History of coronary vasospasm History of tuberculosis Hypertension Hypothyroidism Osteoarthritis Surgical History Surgical History History of bilateral cataract extraction History of carotid endarterectomy History of right knee joint replacement History of thoracotomy At age 16 with what sounds like wedge resection related to tuberculosis. Family History Family History Father Tuberculosis Social History Social History Social History: The patient lives in [place] with her , Armando. She had previously been at a memory care facility. She is a lifelong nonsmoker. No alcohol or illicit substance the use. Her son, Tylor Pastor, is her healthcare power of geothermal system installer. She is listed as a do not resuscitate. Exam Narrative: General: Alert, calm and cooperative, no acute distress, phonating, sitting comfortably during visit HEENT: Pupils equal round and reactive to light, extra ocular movements intact, no conjunctival injection, ecchymosis to right temporal area, no step offs, no lacerations, remaining head atraumatic, neck supple without meningismus, no nystagmus Cardiovascular: Regular rate and rhythm, no visible jugular venous distension Respiratory: Lungs clear to auscultation bilaterally, no wheezing/rales/rhonchi Abdominal: soft, non-tender, non-distended, no guarding, no rebound/peritoneal signs, no costovertebral tenderness to palpation Back: no midline tenderness to palpation, no step offs Extremities: No edema, palpable peripheral pulses, warm, well perfused, no tenderness to bilateral calves Neurological: Alert and oriented x2 (person and place), moving all extremities symmetrically, 5/5 strength throughout, normal finger nose finger, no pronator drift, no truncal ataxia, sensation grossly intact Course Vital Signs Vital signs: Vital Signs Temperature 97.9 F 12/25/22 18:04 Pulse Rate 73 12/25/22 18:04 Respiratory Rate 20 12/25/22 18:04 Blood Pressure 161/64 H 12/25/22 18:04 Pulse Oximetry 97 12/25/22 18:04 Oxygen Delivery Room Air 12/25/22 18:04 Temperature 97.7 F 12/25/22 19:10 Pulse Rate 66 12/25/22 21:45 Respiratory Rate 11 L 12/25/22 21:45 Blood Pressu
[2022-12-25 19:19] LABS: Basophils Absolute Auto 0.1 K/mm3 (0.0-0.1); Basophils Percent Auto 0.9 % (0.2-1.2); Eosinophils Absolute Auto 0.3 K/mm3 (0-0.3); Eosinophils Percent Auto 4.6 % (0-4.4); Hematocrit 38.8 % (37.0-47.0); Hemoglobin 12.3 g/dL (12.0-15.0); Immature Granulocyte Absolute 0.02 K/mm3 (0.00-0.031); Immature Granulocyte Percent A 0.3 % (0-0.5); Lymphocytes Absolute Auto 2.49 K/mm3 (0.9-3.2); Lymphocytes Percent Auto 36.1 % (18.3-44.2); Mean Corpuscular HGB Conc 31.7 g/dl (32-36); Mean Corpuscular Hemoglobin 28.7 pg (26-34); Mean Corpuscular Volume 90.4 fl (80-100); Monocytes Absolute Auto 0.8 K/mm3 (0.1-0.6); Neutrophils Absolute Auto 3.2 K/mm3 (1.3-6.7); Neutrophils Percent Auto 46.1 % (45.5-73.1); Platelet Count Result 164 k/mm3 (150-375); Red Blood Count 4.29 M/mm3 (4.2-5.4); Red Cell Distribution Width 13.2 % (11.5-14.5); White Blood Count 6.9 K/mm3 (4.5-10.0)
--- NOTE | 2022-12-25 19:28 | PC.NURSE ---
Obtained verbal order from EDP Dr. Martinez to straight catheter the patient if patient is unable to urinate on her own.
[2022-12-25 19:30] LABS: Anion Gap 5 mmol/L (8-16); Blood Urea Nitrogen 20 mg/dL (7-17); Calcium 8.6 mg/dL (8.4-10.2); Carbon Dioxide 31 mmol/L (22-30); Chloride 103 mmol/L (98-107); Estimated CRCL calculation 29 ml/min; Estimated Glomerular Filt Rate 47; Glucose 106 mg/dL (65-110); Sodium 139 mmol/L (137-145)
[2022-12-25 19:42] LABS: NT Pro B Type Natriuretic Pept 1190 pg/mL (19.9-100); Troponin I < 0.012 ng/mL (0.000-0.034)
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
[2022-12-26 00:44] LABS: Appearance Urine Clear (Clear); Bilirubin Urine Negative (Negative); Blood Urine Negative (Negative); Color Urine Yellow (Yellow); Glucose Urine UA Negative (Negative); Ketones Urine Negative (Negative); Leukocyte Esterase Ur Negative LEU/UL (Negative); Nitrate Urine Negative (Negative); Protein Urine Negative (Negative); Urobilinogen Urine 0.2 mg/dL (<2.0); pH Urine 5.5 (5.0-9.0)
[2022-12-26 00:45] LABS: Add Urine Microscopic? NO
--- NOTE | 2022-12-26 01:28 | PC.NURSE ---
pt pulled out her IV, she is refusing a new one. pt is being combative when contact attempts are made. Pt also refuses medications. Dr Arce was notified by the technical writer. Dr Arce gave an OK for no IV and was informed of pt's refusal of medications. Dr Arce also aware of pt's high BP readings. Pt's son Justin stated that pt has been very difficult at home and not directable, not listening when help offered.
[2022-12-26 06:00] VITALS: BP 184/61; PULSE 73; RESP 16; TEMP 35.9; O2SAT 93
[2022-12-26 06:09] LABS: Anion Gap 8 mmol/L (8-16); Blood Urea Nitrogen 18 mg/dL (7-17); Calcium 8.6 mg/dL (8.4-10.2); Carbon Dioxide 28 mmol/L (22-30); Chloride 105 mmol/L (98-107); Estimated CRCL calculation 31 ml/min; Estimated Glomerular Filt Rate 47; Glucose 98 mg/dL (65-110); Potassium 3.9 mmol/L (3.4-5.0); Sodium 141 mmol/L (137-145)
[2022-12-26 10:09] VITALS: PULSE 84
[2022-12-26] MEDS: amLODIPine BESYLATE 5 MG TABLET 10 MG PO (10:09)
[2022-12-26] MEDS: carvediloL 12.5 MG TABLET PO ×2 (10:09→20:23)
[2022-12-26] MEDS: ISOSORBIDE MONONITRATE 30 MG TAB.ER.24H PO (10:09)
[2022-12-26] MEDS: MEMANTINE 10 MG TABLET PO ×2 (10:12→17:15)
--- NOTE | 2022-12-26 12:10 | PM.IMPN ---
Progress Note: A&P Assessment and Plan (1) Adult failure to thrive: Code(s): R62.7 - Adult failure to thrive Status: Acute Assessment and Plan: Patient refusing to eat and drink most of the time. Expectations were discussed with family and they are leaning towards hospice. Care coordination consult for hospice care. Family is wanting [facility] but there was a long wait list. There also willing to possibly take the patient home and hired caregivers at home depending on where they can be accepted. (2) Dementia with behavioral disturbance: Code(s): F03.91 - Unspecified dementia, unspecified severity, with behavioral disturbance Status: Acute Assessment and Plan: Patient patient with history of dementia the appears to be progressing. She also has behavioral disturbances which is not new for the patient. It has just become too much for the family to handle at home at this time. (3) Dehydration: Code(s): E86.0 - Dehydration Status: Acute Assessment and Plan: The patient does have dehydration in this is the 2nd hospital contact for such symptoms in under a month. Patient was getting IV fluids until she ripped out her IV. She is refusing IV access at this time. Continue to encourage nursing staff to work with her to get IV access. Subjective Date/time seen: 12/26/22 12:10 Interval history: Patient refusing to interact with me during my exam. She was unwilling to talk or answer any of my questions. Review of Systems Review of Systems: All systems reviewed & are unremarkable except as noted in HPI and below Exam Narrative: GENERAL: Comfortable, no acute distress RESPIRATORY: clear to auscultation CARDIO: RRR GI: soft, nontender, bowel sounds present SKIN: no rashes EXTREMITIES: no edema, redness or tenderness Objective Data Vital Signs Vital Signs: Vital Signs - 24 hr 12/25/22 18:04 12/25/22 18:13 12/25/22 19:10 Temperature 97.9 F Pulse Rate 73 67 69 Respiratory Rate 20 Blood Pressure 161/64 H Pulse Oximetry 97 Oxygen Delivery Room Air 12/25/22 19:10 12/25/22 21:10 12/25/22 21:15 Temperature 97.7 F Pulse Rate 67 64 Respiratory Rate 12 11 L Blood Pressure 144/55 H 145/58 H Pulse Oximetry 94 Oxygen Delivery 12/25/22 21:27 12/25/22 21:30 12/25/22 21:31 Temperature Pulse Rate 63 64 64 Respiratory Rate 10 L 11 L 11 L Blood Pressure 153/60 H 145/57 H Pulse Oximetry 93 93 Oxygen Delivery 12/25/22 21:45 12/25/22 22:15 12/25/22 23:00 Temperature 96.7 F L Pulse Rate 66 67 69 Respiratory Rate 11 L 11 L 16 Blood Pressure 139/59 L 169/66 H 182/60 H Pulse Oximetry 94 94 Oxygen Delivery 12/25/22 23:35 12/26/22 06:00 12/26/22 10:09 Temperature 96.6 F L Pulse Rate 72 73 84 Respiratory Rate 16 16 Blood Pressure 184/61 H Pulse Oximetry 95 93 Oxygen Delivery Room Air 12/26/22 09:45 Temperature Pulse Rate Respiratory Rate Blood Pressure Pulse Oximetry Oxygen Delivery Room Air Meds/Results Medications: Active Medications Generic Name Dose Route Start Last Admin Trade Name Freq PRN Reason Stop Dose Admin Amlodipine Besylate 10 mg 12/26/22 09:00 12/26/22 10:09 Amlodipine Besylate 5 Mg Tablet PO 10 mg DAILY SREE Administration Carvedilol 12.5 mg 12/25/22 23:45 12/26/22 10:09 Carvedilol 12.5 Mg Tablet PO 12.5 mg Q12HR SREE Administration Sodium Chloride 1,000 mls @ 75 mls/hr 12/25/22 21:40 12/26/22 00:50 Normal Saline Iv IV CONT Not Given .[id number] SREE Isosorbide Mononitrate 30 mg 12/26/22 09:00 12/26/22 10:09 Isosorbide Mononitrate 30 Mg Tab.Er.24h PO 30 mg DAILY SREE Administration Levothyroxine Sodium 150 mcg 12/26/22 06:30 12/26/22 05:50 Levothyroxine Sodium 150 Mcg Tablet PO Not Given DAILY@0630 SREE Memantine 10 mg 12/26/22 09:00 12/26/22 10:12 Memantine 10 Mg Tablet PO 10 mg BID S
[2022-12-26 14:00] VITALS: BP 128/53; PULSE 66; RESP 17; TEMP 36.8; O2SAT 95
[2022-12-26 20:00] VITALS: PULSE 66; RESP 17; O2SAT 95
[2022-12-26 21:30] VITALS: BP 156/77; PULSE 81; RESP 18; TEMP 36.7; O2SAT 92
[2022-12-27 05:31] VITALS: BP 155/70; PULSE 72; RESP 17; TEMP 36.9; O2SAT 94
[2022-12-27 08:15] VITALS: O2SAT 95
[2022-12-27 08:19] VITALS: PULSE 72
[2022-12-27] MEDS: ISOSORBIDE MONONITRATE 30 MG TAB.ER.24H PO (08:19)
[2022-12-27] MEDS: carvediloL 12.5 MG TABLET PO ×2 (08:19→20:03)
[2022-12-27] MEDS: MEMANTINE 10 MG TABLET PO ×2 (08:19→17:11)
[2022-12-27] MEDS: amLODIPine BESYLATE 5 MG TABLET 10 MG PO (08:33)
--- NOTE | 2022-12-27 11:07 | PM.IMPN ---
Progress Note: A&P Assessment and Plan (1) Adult failure to thrive: Code(s): R62.7 - Adult failure to thrive Status: Acute Assessment and Plan: Patient refusing to eat and drink most of the time. Expectations were discussed with family and they are leaning towards hospice. Care coordination consult for hospice care. [facility]. Will able to be discharged there tomorrow. (2) Dementia with behavioral disturbance: Code(s): F03.91 - Unspecified dementia, unspecified severity, with behavioral disturbance Status: Acute Assessment and Plan: Patient patient with history of dementia the appears to be progressing. She also has behavioral disturbances which is not new for the patient. It has just become too much for the family to handle at home at this time. (3) Dehydration: Code(s): E86.0 - Dehydration Status: Acute Assessment and Plan: The patient does have dehydration in this is the 2nd hospital contact for such symptoms in under a month. Patient was getting IV fluids until she ripped out her IV. She is refusing IV access at this time. She is eating and drinking well. Does not need IV fluids this time Subjective Date/time seen: 12/27/22 11:07 Interval history: patient sitting up in bed doing well today. She has no complaints at this time. plan to discharge tomorrow into hospice care. Review of Systems Review of Systems: All systems reviewed & are unremarkable except as noted in HPI and below Exam Narrative: GENERAL: Comfortable, no acute distress RESPIRATORY: clear to auscultation CARDIO: RRR GI: soft, nontender, bowel sounds present SKIN: no rashes EXTREMITIES: no edema, redness or tenderness Objective Data Vital Signs Vital Signs: Vital Signs - 24 hr 12/26/22 14:00 12/26/22 20:00 12/26/22 21:30 Temperature 98.2 F 98.0 F Pulse Rate 66 66 81 Respiratory Rate 17 17 18 Blood Pressure 128/53 L 156/77 H Pulse Oximetry 95 95 92 Oxygen Delivery Room Air 12/27/22 05:31 12/27/22 08:15 12/27/22 08:19 Temperature 98.4 F Pulse Rate 72 72 Respiratory Rate 17 Blood Pressure 155/70 H Pulse Oximetry 94 95 Oxygen Delivery Room Air Intake/Output Intake/Output: Intake & Output 07/21/23 12/25/22 12/26/22 12/27/22 23:59 23:59 23:59 23:59 Intake Total 595 360 Output Total 150 Balance 445 360 Meds/Results Medications: Active Medications Generic Name Dose Route Start Last Admin Trade Name Freq PRN Reason Stop Dose Admin Amlodipine Besylate 10 mg 12/26/22 09:00 12/27/22 08:33 Amlodipine Besylate 5 Mg Tablet PO 10 mg DAILY SREE Administration Carvedilol 12.5 mg 12/25/22 23:45 12/27/22 08:19 Carvedilol 12.5 Mg Tablet PO 12.5 mg Q12HR SREE Administration Isosorbide Mononitrate 30 mg 12/26/22 09:00 12/27/22 08:19 Isosorbide Mononitrate 30 Mg Tab.Er.24h PO 30 mg DAILY SREE Administration Levothyroxine Sodium 150 mcg 12/26/22 06:30 12/27/22 05:08 Levothyroxine Sodium 150 Mcg Tablet PO Not Given DAILY@0630 [facility] Memantine 10 mg 12/26/22 09:00 12/27/22 08:19 Memantine 10 Mg Tablet PO 10 mg BID SREE Administration Radiology Results: ITS Impressions Chest X-Ray 12/25/22 19:35 IMPRESSION: No acute cardiopulmonary process. Stable findings of chronic bronchiolitis.
--- NOTE | 2022-12-27 11:29 | PCDIET ---
Screen: MST 4. -24-33 lb weight loss, +poor appetite. Weight loss amount is unknown, no history in EMR and family not sure. Pt did not eat for several days related to increased dementia. She is eating 100% now. Plan is to discharge tomorrow on hospice care. Full assessment deferred because of hospice plan. Continue current regular diet and Ensure Compact BID for additional 220 kcal and 9 g protein each.
[2022-12-27 14:20] VITALS: BP 137/53; PULSE 71; RESP 17; TEMP 37.2; O2SAT 94
[2022-12-27 20:03] VITALS: PULSE 77
[2022-12-27] MEDS: QUEtiapine FUMARATE 25 MG TABLET 50 MG PO (20:03)
[2022-12-27] MEDS: SERTRALINE HCL 50 MG TABLET PO (20:03)
[2022-12-27] MEDS: MIRTAZAPINE 15 MG TABLET PO (20:03)
[2022-12-27 21:13] VITALS: BP 157/57; PULSE 77; RESP 17; TEMP 36.9; O2SAT 95
[2022-12-28 05:32] VITALS: BP 150/62; PULSE 71; RESP 17; TEMP 37; O2SAT 93
[2022-12-28] MEDS: LEVOTHYROXINE SODIUM 112 MCG, LEVOTHYROXINE SODIUM 25 MCG 137 MCG PO (06:18)
[2022-12-28 08:09] VITALS: BP 167/55; PULSE 69; O2SAT 93
[2022-12-28 08:10] VITALS: PULSE 69
[2022-12-28] MEDS: amLODIPine BESYLATE 5 MG TABLET 10 MG PO (08:10)
[2022-12-28] MEDS: ISOSORBIDE MONONITRATE 30 MG TAB.ER.24H PO (08:10)
[2022-12-28] MEDS: carvediloL 12.5 MG TABLET PO (08:10)
[2022-12-28] MEDS: LORATADINE 10 MG TABLET PO (08:10)
[2022-12-28] MEDS: QUEtiapine FUMARATE 25 MG TABLET 50 MG PO (08:11)
[2022-12-28] MEDS: MEMANTINE 10 MG TABLET PO (08:11)
[2022-12-28] MEDS: LOSARTAN POTASSIUM 100 MG TABLET PO (08:11)
[2022-12-28 11:10] LABS: SARS-CoV-2 RNA PCR Negative (Negative)
--- NOTE | 2022-12-28 12:32 | PM.DS ---
DS: Admitting Diagnosis Discharge Date 12/28/22 Admitting Diagnosis Weakness DS: Discharge Diagnosis Discharge Diagnosis (1) Adult failure to thrive: Code(s): R62.7 - Adult failure to thrive Status: Acute Assessment and Plan: Patient refusing to eat and drink most of the time. Expectations were discussed with family and they are leaning towards hospice. Care coordination consult for hospice care. Got accepted into [facility] for hospice care. Will able to be discharged there tomorrow. (2) Dementia with behavioral disturbance: Code(s): F03.91 - Unspecified dementia, unspecified severity, with behavioral disturbance Status: Acute Assessment and Plan: Patient patient with history of dementia the appears to be progressing. She also has behavioral disturbances which is not new for the patient. It has just become too much for the family to handle at home at this time. (3) Dehydration: Code(s): E86.0 - Dehydration Status: Acute Assessment and Plan: The patient does have dehydration in this is the 2nd hospital contact for such symptoms in under a month. Patient was getting IV fluids until she ripped out her IV. She is refusing IV access at this time. She is eating and drinking well. Does not need IV fluids this time DS: Summary Hospital Course Hospital Course: 87-year-old female with past medical history of hypertension, hypothyroidism and dementia presents to the ED on 12/25/2022 due to weakness and decreased activity. Patient has had worsening dementia over the past several months with significant weight loss. Patient has decreased oral intake. Patient recently treated for UTI and her UA in the ED was negative for acute infection. The patient's son interested in hospice care and placing the patient in to an assisted living. Care coordination consult made. Patient was accepted into [facility] for hospice care. Time Spent with Patient Time attestation: Total time spent providing and/or coordinating discharge services: Exam Narrative: GENERAL: Comfortable, no acute distress RESPIRATORY: clear to auscultation CARDIO: RRR GI: soft, nontender, bowel sounds present SKIN: no rashes EXTREMITIES: no edema, redness or tenderness DS: Data Data Completed and Pending Labs on day of discharge: Labs from last 24 hours 12/28/22 10:18 SARS-CoV-2 RNA (RT-PCR) Negative Discharge Plan Discharge Attending physician on discharge: Linda Hernandez Discharging Clinician: Kristie Villarreal Patient Disposition: Home, Self-Care Activity: as tolerated Diet: regular Discharge Instructions: Discharge disposition: Take medications as prescribed Monitor blood pressures Avoid social areas, you wear a mask when in social settings Encouraged to continue with yearly vaccinations Return to the emergency department if he developed sudden shortness of breath, chest pain, nausea, vomiting, upset stomach or intractable diarrhea Return to the emergency department if you develop fever greater than 100.4 Follow-up with the primary care physician within 1-2 weeks Thank you for [facility] for your healthcare needs Patient Instructions: Antibiotic Form Stand Alone Forms: General Discharge Information Follow-up/Referrals: Adam,JAYJAY Garcia [Primary Care Provider] - Discharge Medications: Continued isosorbide mononitrate 30 mg tablet extended release 24 hr 30 mg PO DAILY memantine 10 mg tablet 10 mg PO BID quetiapine 50 mg tablet 50 mg PO Q12H mirtazapine 15 mg tablet 15 mg PO QHS losartan 100 mg tablet 100 mg PO DAILY sertraline 50 mg tablet 50 mg PO QHS loratadine 10 mg tablet 10 mg PO DAILY levothyroxine 137 mcg tablet 137 m[place] PO 0630 amlodipine 10 mg tablet 10 mg PO DAILY carvedilol 25 mg tablet 12.5 mg PO Q12H Qty: 90 0RF
== END 2022-12-28 14:15 | disposition other institution (70) ==
LOC: ANHED 21:16 → ANH2MED 22:02
PROVIDERS: Internal Medicine Critical Care Medicine; Admitting Provider Internal Medicine; Emergency Provider Emergency Medicine; PCP Physician Assistant; Visit Provider Family Medicine
DX: R62.7 Adult failure to thrive (principal); F03.918 Unspecified dementia, unspecified severity, with other behavioral disturbance; E86.0 Dehydration; R53.1 Weakness; Z68.24 Body mass index [BMI] 24.0-24.9, adult; Z20.822 Contact with and (suspected) exposure to COVID-19; I11.0 Hypertensive heart disease with heart failure; I50.9 Heart failure, unspecified; J44.9 Chronic obstructive pulmonary disease, unspecified; E03.9 Hypothyroidism, unspecified; F48.1 Depersonalization-derealization syndrome; Z66 Do not resuscitate; M19.90 Unspecified osteoarthritis, unspecified site; Z87.440 Personal history of urinary (tract) infections; Z86.73 Personal history of transient ischemic attack (TIA), and cerebral infarction without residual deficits; Z79.899 Other long term (current) drug therapy
CPT/HCPCS: 36415; 71046; 80048; 81003; 83880; 84484; 85025; 87635; 93005; 99285; A9270; G0378